=== PATIENT | female | born 1995 | race Caucasian/White ===

== ENCOUNTER 2018-06-12 10:53 | Inpatient (IN) | payer OTHER ==
[2018-06-12] MEDS ORDERED: ONDANSETRON 4 MG/2 ML VIAL IVP STA (11:17)
[2018-06-12] MEDS ORDERED: SODIUM CHLORIDE 0.9% 1,000 ML IV STA (11:17)
[2018-06-12] MEDS ORDERED: MORPHINE SULFATE 4 MG/ML SYRINGE IV STA ×2 (11:17→13:04)
--- NOTE | 2018-06-12 11:21 | ED ---
General Adult HPI <John Moser - Last Filed: 06/12/18 13:07> - General Source: patient, RN notes reviewed, old records reviewed <Luigi Sheffield - Last Filed: 06/12/18 13:33> - General Chief complaint: Abdominal Pain Stated complaint: Abd Pain Time Seen by Provider: 06/12/18 11:04 - History of Present Illness Initial comments: Patient is a 22-year-old female presenting to the emergency room today by EMS with a transfer from [facility] for possible choledocholithiasis. Patient does admit to nausea vomiting over the last 3 days. Denies any signs of blood. Does admit to previous cholecystectomy approximately one year ago. Patient admits to pain in the right side of the abdomen. States pain and symptoms have improved after nausea and pain medicine. Patient did have CT performed mildly dilated duct. There was concern for choledocholithiasis as there is elevated liver enzymes and bilirubin. Patient denies any known history of elevated liver enzymes in the past. She denies any other complaints. Patient denies any recent fever, chills, shortness of breath, chest pain, back pain, numbness or tingling, headaches or visual changes, or any other complaints. (Luigi Sheffield) - Related Data Home Medications Medication Instructions Recorded Confirmed Albuterol Inhaler [Ventolin Hfa 2 puff INHALATION RT-Q6H PRN 06/12/18 06/12/18 Inhaler] Ibuprofen [Motrin] 800 mg PO TID PRN 06/12/18 06/12/18 Allergies Allergy/AdvReac Type Severity Reaction Status Date / Time No Known Allergies Allergy Verified 06/12/18 11:06 Review of Systems ROS Other: All systems not noted in ROS Statement are negative. <John Moser - Last Filed: 06/12/18 13:07> ROS Other: All systems not noted in ROS Statement are negative. <Luigi Sheffield - Last Filed: 06/12/18 13:33> ROS Statement: Those systems with pertinent positive or pertinent negative responses have been documented in the HPI. Past Medical History Past Medical History: No Reported History History of Any Multi-Drug Resistant Organisms: None Reported Past Surgical History: Cholecystectomy, Ear Surgery, Tonsillectomy Past Psychological History: No Psychological Hx Reported Smoking Status: Current every day smoker Past Alcohol Use History: None Reported Past Drug Use History: None Reported <Luigi Sheffield - Last Filed: 06/12/18 13:33> General Exam <John Moser - Last Filed: 06/12/18 13:07> <Luigi Sheffield - Last Filed: 06/12/18 13:33> - General Exam Comments Initial Comments: General: The patient is awake and alert, in no distress, and does not appear acutely ill. Eye:agmus. There is normal conjunctiva bilaterally. No signs of icterus. Ears, nose, mouth and throat: There are moist mucous membranes and no oral lesions. Neck: The neck is supple, there is no tenderness or JVD. Cardiovascular: There is a regular rate and rhythm. No murmur, rub or gallop is appreciated. Respiratory: Lungs are clear to auscultation, respirations are non-labored, breath sounds are equal. No wheezes, stridor, rales, or rhonchi. Gastrointestinal: Abdomen soft on palpation. Mild tenderness epigastric right upper quadrants. No rebound or guarding. Musculoskeletal: Normal ROM, no tenderness. Neurological: A&O x 3. CN II-XII intact, There are no obvious motor or sensory deficits. Coordination appears grossly intact. Speech is normal. Skin: Skin is warm and dry and no rashes or lesions are noted. Psychiatric: Cooperative, appropriate mood & affect, normal judgment. (Luigi Sheffield) Course <John Moser - Last Filed: 06/12/18 13:07> <YohannesLuigi - Last Filed: 06/12/18 13:33> Vital Signs 06/12/18 06/12/18 06/12/18 10:57 11:42 13:22 Temperature 98.0 F Pulse Rate 76 71 72 Respiratory 18 16 Rate Blood Pressure 131/82 133/87 132/82 O2 Sat by Pulse 100 98 98 Oximetry - Reevaluation(s) Reevaluation #1: 06/12/18 13:07 PA supervision: I proceeded [id number] evaluation the patient she was transferred from [facility] with complaints of 3 days of abdominal pain. She is 3 years out from a cholecystectomy. She is found have elevated liver enzymes and a bilirubin of 3.0. He persists in having pain. She will be admitted with GI consultation. I do agree with the assessment and plan. (John Moser) Medical Decision Making - Lab Data Result diagrams: 06/12/18 11:40 06/12/18 11:40 <John Moser - Last Filed: 06/12/18 13:07> - Lab Data Result diagrams: 06/12/18 11:40 06/12/18 11:40 <Luigi Sheffield - Last Filed: 06/12/18 13:33> - Lab Data Lab Results 06/12/18 06/12/18 06/12/18 Range/Units 11:40 11:40 11:40 WBC 8.1 (4.0-11.0) k/uL RBC 4.86 (3.80-5.40) m/uL Hgb 14.5 (11.4-16.0) gm/dL Hct 43.3 (34.0-46.0) % MCV 88.9 (80.0-100.0) fL MCH 29.8 (25.0-35.0) pg MCHC 33.5 (31.0-37.0) g/dL RDW 13.7 (11.5-15.5) % Plt Count 285 (150-450) k/uL Neutrophils % 67 % Lymphocytes % 21 % Monocytes % 8 % Eosinophils % 2 % Basophils % 1 % Neutrophils # 5.4 (1.3-7.7) k/uL Lymphocytes # 1.7 (1.0-4.8) k/uL Monocytes # 0.7 (0-1.0) k/uL Eosinophils # 0.2 (0-0.7) k/uL Basophils # 0.1 (0-0.2) k/uL Sodium 140 (137-145) mmol/L Potassium 3.8 (3.5-5.1) mmol/L Chloride 108 H (98-107) mmol/L Carbon Dioxide 23 (22-30) mmol/L Anion Gap 9 mmol/L BUN 12 (7-17) mg/dL Creatinine 0.85 (0.52-1.04) mg/dL Est GFR (CKD-EPI)AfAm >90 (>60 ml/min/1.73 sqM) Est GFR (CKD-EPI)NonAf >90 (>60 ml/min/1.73 sqM) Glucose 98 (74-99) mg/dL Calcium 9.0 (8.4-10.2) mg/dL Total Bilirubin 3.0 H (0.2-1.3) mg/dL AST 371 H (14-36) U/L ALT 672 H (9-52) U/L Alkaline Phosphatase 147 H (38-126) U/L Total Protein 7.1 (6.3-8.2) g/dL Albumin 4.1 (3.5-5.0) g/dL Amylase <30 L (30-110) U/L Lipase 37 (23-300) U/L HCG, Quant <2.4 mIU/mL Urine Color [place] Urine Appearance Clear (Clear) Urine pH 6.5 (5.0-8.0) Ur Specific [place] >1.050 H (1.001-1.035) Urine Protein 1+ H (Negative) Urine Glucose (UA) Negative (Negative) Urine Ketones 1+ H (Negative) Urine Blood Small H (Negative) Urine Nitrite Negative (Negative) Urine Bilirubin 2+ H (Negative) Urine Urobilinogen 2.0 (<2.0) mg/dL Ur Leukocyte Esterase Negative (Negative) Urine RBC 4 (0-5) /hpf Urine WBC 1 (0-5) /hpf Ur Squamous Epith Cells 11 H (0-4) /hpf Urine Bacteria Rare H (None) /hpf Urine Mucus Occasional H (None) /hpf Hepatitis A IgM Ab 06/12/18 Range/Units 11:51 WBC (4.0-11.0) k/uL RBC (3.80-5.40) m/uL Hgb (11.4-16.0) gm/dL Hct (34.0-46.0) % MCV (80.0-100.0) fL MCH (25.0-35.0) pg MCHC (31.0-37.0) g/dL RDW (11.5-15.5) % Plt Count (150-450) k/uL Neutrophils % % Lymphocytes % % Monocytes % % Eosinophils % % Basophils % % Neutrophils # (1.3-7.7) k/uL Lymphocytes # (1.0-4.8) k/uL Monocytes # (0-1.0) k/uL Eosinophils # (0-0.7) k/uL Basophils # (0-0.2) k/uL Sodium (137-145) mmol/L Potassium (3.5-5.1) mmol/L Chloride (98-107) mmol/L Carbon Dioxide (22-30) mmol/L Anion Gap mmol/L BUN (7-17) mg/dL Creatinine (0.52-1.04) mg/dL Est GFR (CKD-EPI)AfAm (>60 ml/min/1.73 sqM) Est GFR (CKD-EPI)NonAf (>60 ml/min/1.73 sqM) Glucose (74-99) mg/dL Calcium (8.4-10.2) mg/dL Total Bilirubin (0.2-1.3) mg/dL AST (14-36) U/L ALT (9-52) U/L Alkaline Phosphatase (38-126) U/L Total Protein (6.3-8.2) g/dL Albumin (3.5-5.0) g/dL Amylase (30-110) U/L Lipase (23-300) U/L HCG, Quant mIU/mL Urine Color Urine Appearance (Clear) Urine pH (5.0-8.0) Ur Specific [place] (1.001-1.035) Urine Protein (Negative) Urine Glucose (UA) (Negative) Urine Ketones (Negative) Urine Blood (Negative) Urine Nitrite (Negative) Urine Bilirubin (Negative) Urine Urobilinogen (<2.0) mg/dL Ur Leukocyte Esterase (Negative) Urine RBC (0-5) /hpf Urine WBC (0-5) /hpf Ur Squamous Epith Cells (0-4) /hpf Urine Bacteria (None) /hpf Urine Mucus (None) /hpf Hepatitis A IgM Ab NEGATIVE Disposition <John Moser - Last Filed: 06/12/18 13:07> Is patient prescribed a controlled substance at d/c from ED?: No Time of Disposition: 13:03 <Luigi Sheffield - Last Filed: 06/12/18 13:33> Clinical Impression: Elevated liver enzymes, Elevated bilirubin, Right upper quadrant abdominal pain Narrative: Rule out choledocholithiasis (Luigi Sheffield) Disposition: ADMITTED IP TO THIS [facility] Condition: Good Referrals: Chandra Leo MD [Primary Care Provider] - 1-2 days
[2018-06-12 11:55] LABS: Basophils # (A) 0.1 k/uL (0-0.2); Basophils % (A) 1 %; Eosinophils # (A) 0.2 k/uL (0-0.7); Eosinophils % (A) 2 %; HCT 43.3 % (34.0-46.0); HGB 14.5 gm/dL (11.4-16.0); Lymphocytes # (A) 1.7 k/uL (1.0-4.8); Lymphocytes % (A) 21 %; MCH 29.8 pg (25.0-35.0); MCHC 33.5 g/dL (31.0-37.0); MCV 88.9 fL (80.0-100.0); Monocytes # (A) 0.7 k/uL (0-1.0); Monocytes % (A) 8 %; Neutrophils # (A) 5.4 k/uL (1.3-7.7); Neutrophils % (A) 67 %; Platelet Count 285 k/uL (150-450); RBC 4.86 m/uL (3.80-5.40); RDW 13.7 % (11.5-15.5); WBC 8.1 k/uL (4.0-11.0)
[2018-06-12 11:59] LABS: Appearance,Urine Clear (Clear); Bacteria,Urine Rare /hpf; Bilirubin,Urine 2+ (Negative); Blood,Urine Small (Negative); Color,Urine Orange; Glucose,Urine (UA) Negative (Negative); Ketones,Urine 1+ (Negative); Leukocyte Esterase,Urine Negative (Negative); Mucus,Urine Occasional /hpf; Nitrite,Urine Negative (Negative); PH, Urine 6.5 (5.0-8.0); Protein,Urine 1+ (Negative); RBC,Urine 4 /hpf (0-5); Specific Gravity,Urine >1.050 (1.001-1.035); Squamous Epithelial Cell,Urine 11 /hpf (0-4); WBC,Urine 1 /hpf (0-5)
[2018-06-12 12:07] LABS: ALT 672 U/L (9-52); AST 371 U/L (14-36); Albumin 4.1 g/dL (3.5-5.0); Alkaline Phosphatase 147 U/L (38-126); Amylase <30 U/L (30-110); Anion Gap 9 mmol/L; Blood Urea Nitrogen 12 mg/dL (7-17); Carbon Dioxide 23 mmol/L (22-30); Chloride 108 mmol/L (98-107); Glucose 98 mg/dL (74-99); Lipase 37 U/L (23-300); Potassium 3.8 mmol/L (3.5-5.1); Sodium 140 mmol/L (137-145); Total Protein 7.1 g/dL (6.3-8.2)
[2018-06-12 12:23] LABS: HCG,Quantitative Serum <2.4 mIU/mL
[2018-06-12 12:50] LABS: Hepatitis A AB IgM Index 0.01; Hepatitis A Antibody IgM NEGATIVE
[2018-06-12] MEDS ORDERED: NALOXONE 0.4 MG/ML 1 ML VIAL IV PRN (13:34)
[2018-06-12 14:43] VITALS: BMI 51.8
[2018-06-12] MEDS: SODIUM CHLORIDE 0.9% 1,000 ML IV ONE (15:29)
[2018-06-12] MEDS: ONDANSETRON 4 MG/2 ML VIAL IVP PRN (21:21)
[2018-06-12] MEDS: MORPHINE SULFATE 4 MG/ML SYRINGE IV PRN (21:21)
[2018-06-12] MEDS: ENOXAPARIN 40 MG/0.4 ML SYRINGE SQ SCH (21:48)
[2018-06-12] MEDS: NICOTINE 21MG/24HR PATCH TRANSDERM SCH (21:48)
--- NOTE | 2018-06-12 22:56 | HP ---
HISTORY AND PHYSICAL DATE OF SERVICE: 06/12/2018. PRESENTING COMPLAINT: Right upper quadrant pain. HISTORY OF PRESENTING COMPLAINT: This is a 22-year-old patient of Dr. Leo. Chronic stable medical conditions include asthma, scoliosis, obesity. The patient had gallbladder removed by Dr. Velasquez about 2 years ago in [place]. The patient for about 8 weeks has been having some right upper quadrant pain. Over the last 3 days, right upper quadrant pain has gotten worse, having nausea and vomiting. No fever. The patient presented to [facility]. The patient was found to have elevated liver functions, ALT of 723, AST of 490, bilirubin of 3.2. The patient was sent down here with questions about dilated ducts, intention of ERCP. No fever. No chills. The patient's boyfriend is present with her. REVIEW OF SYSTEMS: CONSTITUTIONAL: Tired. HEENT: None. RESPIRATORY: Occasional wheezing. CARDIOVASCULAR: None. GASTROINTESTINAL: As above. : None. MUSCULOSKELETAL: Chronic lower back pain. DERMATOLOGICAL, HEMATOLOGIC, LYMPHATIC: None. PSYCHIATRY: None. NEUROLOGIC: None. PAST MEDICAL HISTORY: Low back pain from scoliosis, asthma. PAST SURGICAL HISTORY: Cholecystectomy, ear surgery, tonsillectomy. SOCIAL HISTORY: Smokes a pack a day. No alcohol. Lives with the father. Does not work. FAMILY HISTORY: DJD. HOME MEDICATIONS: 1. Motrin 800 mg t.i.d. p.r.n. 2. Ventolin HFA 2 puffs every 6 hours p.r.n. ALLERGIES: MUSHROOMS. EXAMINATION: Temperature 98, pulse 66, respirations 20, blood pressure 130/69, pulse ox 95% on room air. GENERAL APPEARANCE: Well built, BMI 51.8. Lying in bed, comfortable. EYES: Pupils equal. Conjunctivae normal. HEENT: External nose and ears normal. Oral cavity normal. NECK: Short, thick, JVD unable to assess. Mass not palpable. Respiratory effort normal. LUNGS: Mild wheezing. CARDIOVASCULAR: First and second sounds normal. No edema. Right upper quadrant tenderness. No guarding or rigidity. Liver and spleen not palpable. LYMPHATICS: No lymph node palpable in the neck or axillae. PSYCHIATRY: Alert and oriented x3. Mood and affect normal. NEUROLOGIC: Pupils equal. Cranial nerves grossly intact. Power and sensation grossly intact. INVESTIGATIONS: White count 8.1, hemoglobin 14.5, potassium 3.8. BUN and creatinine normal. Total bilirubin 3, AST 371, ALT 672. This was 723 and 490 at the other hospital. Total bilirubin is 3. Amylase and lipase negative. Hepatitis A, IgM antibodies negative. ASSESSMENT: 1. The patient with right upper quadrant pain for last few days, worsening in the last 3 days, with elevated liver enzymes, hyperbilirubinemia in a patient who has had cholecystectomy. There was a concern about a biliary duct stone and the patient may need ERCP for the same. There is no septic picture at the present time with no fever and no white count. Hold off any antibiotics. 2. Mild intermittent asthma. 3. Chronic nicotine dependence, patient is a cigarette smoker. 4. Morbid obesity, BMI 51.8. PLAN: Repeat labs in the morning in the morning. GI has been consulted. Given a nicotine patch. Lovenox for DVT prophylaxis. IV fluids. The patient will probably need an ERCP. Care was discussed with the patient and boyfriend. Questions were answered. MMCHAPINCITOL / VICTOR HUGON: [id number] /
[2018-06-13] MEDS: SODIUM CHLORIDE 0.9% 1,000 ML IV ONE (00:33)
[2018-06-13] MEDS: MORPHINE SULFATE 4 MG/ML SYRINGE IV PRN ×2 (05:40→21:24)
[2018-06-13] MEDS: ONDANSETRON 4 MG/2 ML VIAL IVP PRN ×2 (05:40→23:26)
[2018-06-13] MEDS: ENOXAPARIN 40 MG/0.4 ML SYRINGE SQ SCH (08:33)
[2018-06-13 09:43] LABS: Hepatitis B Core IgM Non-Reactive (Non-Reactive)
[2018-06-13 10:21] LABS: Basophils # (A) 0.1 k/uL (0-0.2); Basophils % (A) 1 %; Eosinophils # (A) 0.2 k/uL (0-0.7); Eosinophils % (A) 3 %; HCT 43.3 % (34.0-46.0); Lymphocytes # (A) 2.1 k/uL (1.0-4.8); Lymphocytes % (A) 32 %; MCH 28.9 pg (25.0-35.0); MCHC 32.3 g/dL (31.0-37.0); MCV 89.5 fL (80.0-100.0); Mean Platelet Volume 6.9; Monocytes # (A) 0.6 k/uL (0-1.0); Monocytes % (A) 9 %; Neutrophils # (A) 3.5 k/uL (1.3-7.7); Neutrophils % (A) 54 %; Platelet Count 251 k/uL (150-450); RBC 4.84 m/uL (3.80-5.40); RDW 13.7 % (11.5-15.5); WBC 6.6 k/uL (4.0-11.0)
[2018-06-13 10:37] LABS: ALT 480 U/L (9-52); AST 174 U/L (14-36); Albumin 3.6 g/dL (3.5-5.0); Alkaline Phosphatase 149 U/L (38-126); Anion Gap 9 mmol/L; Blood Urea Nitrogen 8 mg/dL (7-17); Calcium 9.2 mg/dL (8.4-10.2); Carbon Dioxide 26 mmol/L (22-30); Chloride 105 mmol/L (98-107); Glucose 80 mg/dL (74-99); Potassium 4.2 mmol/L (3.5-5.1); Sodium 140 mmol/L (137-145); Total Bilirubin 3.9 mg/dL (0.2-1.3); Total Protein 6.6 g/dL (6.3-8.2)
[2018-06-13] MEDS: NICOTINE 21MG/24HR PATCH TRANSDERM SCH (21:25)
--- NOTE | 2018-06-13 21:25 | P.CONS ---
History of Present Illness - Reason for Consult Consult date: 06/13/18 Abdominal pain Requesting physician: Chris Mari - Chief Complaint Abdominal pain - History of Present Illness 22-year-old female with a medical history significant for asthma, scoliosis and morbid obesity who presents to the hospital with complaints of abdominal pain. The patient previously had a cholecystectomy approximately one and a half to 2 years ago. She reports that over the past 8 weeks she has been having intermittent right upper quadrant pain. This pain became constant and more intense in severity over the past 3 days causing the patient's to present to the hospital for further evaluation. The patient had associated nausea and vomiting. The patient had imaging at an outside hospital with a computed tomography scan with reported dilation of the biliary tree. On presentation to the hospital she was found to have an elevation in her liver enzymes with a total bilirubin 3.9, alkaline phosphatase 149, AST 174 and ALT 480. Currently she is seen sitting in bed reporting that her abdominal pain has resolved. She still reports some abdominal tenderness with palpation but states that the pain which caused her to come to the hospital has passed. She is asking for diet at this time. Review of Systems REVIEW OF SYSTEMS: CARDIO: Denies any chest pain or palpitations. PULMONARY: Denies any shortness of breath or wheezing. GENITOURINARY: No dysuria or hematuria. MUSCULOSKELETAL: No weakness reported. SKIN: Denies any new rashes or lesions, jaundice or pallor. PSYCHIATRIC: Denies any depression or anxiety. NEUROLOGY: Denies headache, denies any new focal deficits. EARS: No tinnitus, discharge or new hearing loss. NOSE: No discharge or congestion. EYES: No pain in eyes or change in vision. CONSTITUTIONAL: No recent weight loss. No fever, chills, night sweats. Past Medical History Past Medical History: No Reported History History of Any Multi-Drug Resistant Organisms: None Reported Past Surgical History: Cholecystectomy, Ear Surgery, Tonsillectomy Past Anesthesia/Blood Transfusion Reactions: No Reported Reaction Past Psychological History: No Psychological Hx Reported Smoking Status: Current every day smoker Past Alcohol Use History: None Reported Past Drug Use History: None Reported - Past Family History Mother Additional Family Medical History / Comment(s): DEGENERATIVE BONE DISEASE Medications and Allergies Home Medications Medication Instructions Recorded Confirmed Type Albuterol Inhaler [Ventolin Hfa 2 puff INHALATION RT-Q6H PRN 06/12/18 06/12/18 History Inhaler] Ibuprofen [Motrin] 800 mg PO TID PRN 06/12/18 06/12/18 History Allergies Allergy/AdvReac Type Severity Reaction Status Date / Time Mushroom Allergy Rash/Hives Verified 06/12/18 14:27 Physical Exam Vitals: Vital Signs Temp Pulse Resp BP Pulse Ox 06/13/18 16:38 98.5 F 79 16 112/64 99 06/13/18 11:45 98.1 F 77 18 111/74 95 06/13/18 08:10 97.7 F 88 20 114/80 94 L 06/13/18 01:30 98.9 F 70 18 128/78 96 Intake and Output 06/13/18 06/13/18 06/13/18 06:59 14:59 22:59 Other: # Voids 1 On physical examination, patient appears comfortable in no apparent distress. HEAD: Normocephalic, atraumatic. EYES: No scleral icterus. No conjunctival injection. MOUTH: No lesions, tongue midline. NECK: Trachea midline, no gross abnormalities. CHEST: Clear to auscultation with no wheezing or rhonchi appreciated. HEART: Regular rate and rhythm. ABDOMEN: Soft, obese. Bowel sounds are positive. No organomegaly. No guarding or rigidity. EXTREMITIES: No pedal edema. SKIN: No rashes, no jaundice. NEUROLOGIC: Alert and oriented x3. No focal deficits. Results CBC & Chem 7: 06/13/18 09:43 06/13/18 09:43 Labs: Abnormal Lab Results - Last 24 Hours (Table) 06/13/18 Range/Units 09:43 Total Bilirubin 3.9 H (0.2-1.3) mg/dL AST 174 H (14-36) U/L ALT 480 H (9-52) U/L Alkaline Phosphatase 149 H (38-126) U/L Assessment and Plan (1) Right upper quadrant abdominal pain Narrative/Plan: 3-year-old female with a prior history of cholecystectomy who presented to the hospital with intermittent episodes of right upper quadrant abdominal pain over the past 8 weeks which has intensified over the past 3 days prior to presentation and has since resolved. The patient reports that this pain was in the right upper quadrant and she was found to have an associated rise in her liver enzymes with both a cholestatic and hepatocellular pattern on presentation. Unknown etiology, this may represent choledocholithiasis, a passed gallstone, sphincter of OD dysfunction, functional dyspepsia or other etiology. Current Visit: Yes Status: Acute Code(s): R10.11 - RIGHT UPPER QUADRANT PAIN SNOMED Code(s): 932852145 (2) Elevated bilirubin Current Visit: Yes Status: Acute Code(s): R17 - UNSPECIFIED JAUNDICE SNOMED Code(s): 376524142 (3) Elevated liver enzymes Current Visit: Yes Status: Acute Code(s): R74.8 - ABNORMAL LEVELS OF OTHER SERUM ENZYMES SNOMED Code(s): 183973752 Plan: Supportive care Okay for full liquid diet and advance as tolerated Nothing by mouth after midnight Repeat liver enzymes in the morning We'll order an ultrasound of the abdomen for further evaluation, and MRCP is preferred test of choice, however at this time the patient's body habitus is limiting Continue to monitor clinically Further recommendations pending patient's clinical course and findings of laboratory and imaging evaluation Thank you for allowing us to participate in the care of this patient we will continue to follow
[2018-06-14] MEDS ORDERED: HYDROmorphone 0.5 MG/0.5 ML SYRINGE IVP PRN (00:37)
[2018-06-14] MEDS ORDERED: METOCLOPRAMIDE 5 MG/ML 2 ML VIAL IVP PRN (00:39)
[2018-06-14] MEDS: HYDROmorphone 1 MG/ML 1 ML SYRINGE IVP PRN ×2 (04:07→13:49)
[2018-06-14 06:32] LABS: Albumin 3.7 g/dL (3.5-5.0); Bilirubin, Conjugated 1.6 mg/dL (0.0-0.3); Bilirubin, Delta 1.6 mg/dL (0.0-0.2); Bilirubin,Unconjugated 0.6 mg/dL (0.0-1.1); Total Bilirubin 3.8 mg/dL (0.2-1.3); Total Protein 6.5 g/dL (6.3-8.2)
[2018-06-14] MEDS: ENOXAPARIN 40 MG/0.4 ML SYRINGE SQ SCH (07:48)
[2018-06-14] MEDS: NICOTINE 21MG/24HR PATCH TRANSDERM SCH (07:48)
--- NOTE | 2018-06-14 08:03 | US ---
EXAMINATION TYPE: US abdomen limited DATE OF EXAM: 06/14/2018 COMPARISON: NONE CLINICAL HISTORY: Abdomina pain, history cholecystectomy. Patient stated has right lateral abdominal pain that radiates lateral and upward, diarrhea, and nausea; gallbladder removed 2 years ago EXAM MEASUREMENTS: Liver Length: 20.5 cm Gallbladder Wall: surgically absent CBD: 0.5 cm Right Kidney: 10.8 x 6.2 x 4.7 cm Us exam is technically limited due to large body habitus. Pancreas: hyperechoic Liver: enlarged. There is increased echogenicity of the hepatic parenchyma with diminished visualiza tion of the portal triads most commonly relating to hepatic steatosis and limiting evaluation for und erlying hepatic masses. Gallbladder: surgically removed Evidence for sonographic Fernando's sign: no CBD: wnl Right Kidney: No hydronephrosis or masses seen IMPRESSION: 1. Findings most compatible with hepatic steatosis overall appearing moderate in degree. Correlate wi th liver function tests. 2. Surgical absence of the gallbladder. Common bile duct is within normal limits.
[2018-06-14] MEDS ORDERED: AMPICILLIN-SULBACTAM 3 GM in SODIUM CHLORIDE 0.9% 100 ML IVPB ONE (14:00)
[2018-06-14] MEDS ORDERED: INDOMETHACIN 50MG SUPPOSITORY RECTAL ONE (14:00)
[2018-06-14] MEDS ORDERED: ROCURONIUM BROMIDE 10 MG/ML 10 ML VIAL IV ONE (16:17)
[2018-06-14] MEDS ORDERED: PROPOFOL 10 MG/ML 20 ML VIAL IV ONE (16:17)
[2018-06-14] MEDS ORDERED: fentaNYL (PF) 50 MCG/ML 2 ML AMP ONE (16:17)
[2018-06-14] MEDS ORDERED: IOPAMIDOL-300 50ML BTL INJ ONE (17:20)
[2018-06-14] MEDS ORDERED: IV FLUID CONTINUATION 1,000 ML IV ONE (17:21)
--- NOTE | 2018-06-14 17:27 | P.PCN ---
Date of Procedure: 06/14/18 Description of Procedure: Brief history: 22-year-old female with a medical history significant for asthma, scoliosis and morbid obesity who presents to the hospital with complaints of abdominal pain. The patient previously had a cholecystectomy approximately one and a half to 2 years ago. She reports that over the past 8 weeks she has been having intermittent right upper quadrant pain. This pain became constant and more intense in severity over the past 3 days causing the patient's to present to the hospital for further evaluation. The patient had associated nausea and vomiting. The patient had imaging at an outside hospital with a computed tomography scan with reported dilation of the biliary tree. On presentation to the hospital she was found to have an elevation in her liver enzymes with a total bilirubin 3.9, alkaline phosphatase 149, AST 174 and ALT 480. Upon initial evaluation the patient reported that she had resolution of her abdominal pain and was asking for a diet. However overnight the patient reported a further episode of right upper quadrant abdominal pain and repeat lab exam in the morning was significant for a persistently elevated total bilirubin of 3.8. At this time decision was made to perform an ERCP for further evaluation. Procedure performed: ERCP with cholangiogram, sphincterotomy and balloon sweep Preoperative diagnoses: Elevated total bilirubin, elevated liver enzymes, right upper quadrant abdominal pain IV sedation per anesthesia Estimated blood loss: Minimal. Procedure: After informed consent was obtained from the patient and after the risks benefits and complications including bleeding perforation and pancreatitis explained in detail the patient was brought into the endoscopy unit. The patient was placed in prone position and IV conscious sedation was administered by anesthesia under continuous monitoring. The Olympus side-viewing duodenoscope was then inserted into the mouth and esophagus intubated without any difficulty. The scope was gradually advanced into the stomach and duodenum. The major papilla was identified without any difficulty. Intubation of the ampulla was performed with a sphincterotome successfully followed by wire cannulation of the common bile duct. Cholangiogram was performed which showed a dilated common bile duct. An 11 mm sphincterotomy was then performed. Cannulation with a 11.5 mm balloon with multiple sweeps of the bile duct was then significant for bile duct sludge. Good bile flow was noted at the conclusion of the procedure. The pancreatic duct was not cannulated or injected. The patient tolerated the procedure well. Impression: 1. Dilated common bile duct noted on cholangiogram 2. Sphincterotomy 3. Balloon sweep of the common bile duct with biliary sludge noted Recommendations: The findings of this examination were discussed with the patient. Attempt was made to discuss the case with the patient's boyfriend and sister who are accompanying her for the procedure however they were not in the surgical waiting area. Okay for full liquid diet advance to low-fat diet as tolerated. Repeat liver enzymes in the morning. Monitor for signs and symptoms of pancreatitis. Unasyn given preprocedure. Indocin given to the patient.
--- NOTE | 2018-06-15 06:45 | FL ---
EXAMINATION TYPE: FL ERCP DATE OF EXAM: 06/14/2018 CLINICAL HISTORY: Pain. TECHNIQUE: Fluoroscopy. COMPARISON: Outside CT from 2 days ago.. FINDINGS: Fluoroscopic guidance was provided during ERCP procedure performed by Dr. Urias. A tota l of 4 minutes 18 seconds of fluoroscopic time was utilized during the procedure and 7 spot images wa s acquired. Images saved show successful biliary access with dilated extrahepatic biliary duct and pr ominent cystic duct remnant. Please refer to procedure note for further details as I was not present nor performed procedure. IMPRESSION: As Above.
--- NOTE | 2018-06-15 06:54 | PN ---
PROGRESS NOTE DATE OF SERVICE: 06/14/2018 PRESENTING COMPLAINT: Abdominal pain. INTERVAL HISTORY: Patient admitted with right upper quadrant pain. History of prior cholecystectomy. Saw this patient this morning before the ERCP. The previous evening patient had some more nausea and right upper quadrant pain. The patient is pending to go down to ERCP. REVIEW OF SYSTEMS: Done for constitutional, cardiovascular, GI, pulmonary; relevant findings as above. CURRENT MEDICATIONS: Reviewed. PHYSICAL EXAMINATION: Temperature 98.1 pulse 65, respirations 16, blood pressure 110/78, pulse ox 95% on room air. GENERAL APPEARANCE: Laying in bed, comfortable. EYES: Pupils equal. Conjunctivae normal. NECK: JVD not raised. Mass not palpable. Respiratory effort normal. LUNGS: Fair air entry. CARDIOVASCULAR: First and second sounds. No edema. ABDOMEN: Right upper quadrant tenderness. No guarding or rigidity. PSYCHIATRY: Alert and oriented x3. Mood and affect normal. INVESTIGATIONS: Bilirubin3.8, AST 115, ALT 378. Hepatitis screen is negative. ASSESSMENT: 1. Right upper quadrant pain with a dilated common bile duct. The patient may have sludge or stone, pending ERCP. 2. Mild intermittent asthma. 3. Chronic nicotine dependence, patient is a cigarette smoker. 4. Morbid obesity BMI 51.8. PLAN: Care was discussed with the patient. She was pending ERCP when I saw her this morning. Later in the evening, I looked at the report. The patient did have a sphincterotomy and possibly some sludge was removed. Will follow up then tomorrow. MMODL / IJN: [id number] /
[2018-06-15] MEDS: NICOTINE 21MG/24HR PATCH TRANSDERM SCH (08:55)
[2018-06-15] MEDS: ENOXAPARIN 40 MG/0.4 ML SYRINGE SQ SCH (08:55)
[2018-06-15 10:09] LABS: ALT 312 U/L (9-52); AST 119 U/L (14-36); Albumin 3.8 g/dL (3.5-5.0); Alkaline Phosphatase 131 U/L (38-126); Anion Gap 11 mmol/L; Bilirubin, Conjugated 2.1 mg/dL (0.0-0.3); Bilirubin, Delta 1.6 mg/dL (0.0-0.2); Bilirubin,Unconjugated 1.1 mg/dL (0.0-1.1); Blood Urea Nitrogen 14 mg/dL (7-17); Calcium 9.4 mg/dL (8.4-10.2); Carbon Dioxide 24 mmol/L (22-30); Chloride 105 mmol/L (98-107); Glucose 139 mg/dL (74-99); Potassium 3.7 mmol/L (3.5-5.1); Sodium 140 mmol/L (137-145); Total Bilirubin 4.8 mg/dL (0.2-1.3); Total Protein 6.8 g/dL (6.3-8.2)
--- NOTE | 2018-06-15 11:19 | P.PN ---
Subjective Progress Note Date: 06/15/18 Principal diagnosis: Elevated liver enzymes Status post ERCP sphincterotomy. LFTs today; bilirubin elevated; TB 4.8. AST 119. ALT 312. AP 131. Denies abdominal pain. Tolerating diet. Afebrile. Objective - Vital Signs Vital signs: Vital Signs Temp 97.8 F 06/15/18 06:15 Pulse 70 06/15/18 06:15 Resp 20 06/15/18 06:15 BP 129/77 06/15/18 06:15 Pulse Ox 97 06/15/18 06:15 Intake & Output 06/14/18 06/15/18 06/15/18 18:59 06:59 18:59 Intake Total 700 400 Balance 700 400 Intake: IV 700 Oral 400 Other: Voiding Method Toilet # Voids 3 1 1 # Bowel Movements 1 - Exam General appearance: The patient is alert, oriented, in no acute distress. HET: Head is normocephalic and atraumatic. Pupils are equal and reactive. Oropharynx is clear without lesions. Neck: Supple without lymphadenopathy. Trachea midline. Heart: S1 S2. Regular rate and rhythm. Lungs: No crackles or wheezes are heard. Abdomen: Soft, very mild tenderness to midepigastrium, nondistended with bowel sounds. No peritoneal signs. No palpable organomegaly or masses. Extremities: Normal skin color and turgor. No cyanosis, rash, ulceration, clubbing, or edema. Radial and pedal pulses are 2/4 bilaterally. Neurological: No focal deficits. Strength and sensation are grossly intact. - Labs CBC & Chem 7: 06/13/18 09:43 06/15/18 09:26 Labs: Abnormal Lab Results - Last 24 Hours (Table) 06/15/18 Range/Units 09:26 Glucose 139 H (74-99) mg/dL Total Bilirubin 4.8 H (0.2-1.3) mg/dL Conjugated Bilirubin 2.1 H (0.0-0.3) mg/dL Delta Bilirubin 1.6 H (0.0-0.2) mg/dL AST 119 H (14-36) U/L ALT 312 H (9-52) U/L Alkaline Phosphatase 131 H (38-126) U/L Assessment and Plan (1) Elevated liver enzymes Narrative/Plan: Status post ERCP sphincterotomy total bilirubin elevated from yesterday underlying viral possible chronic liver disease cannot be excluded. Abdominal pain improved. Current Visit: Yes Status: Acute Code(s): R74.8 - ABNORMAL LEVELS OF OTHER SERUM ENZYMES SNOMED Code(s): 066605787 (2) Right upper quadrant abdominal pain Current Visit: Yes Status: Acute Code(s): R10.11 - RIGHT UPPER QUADRANT PAIN SNOMED Code(s): 495299590 Plan: 1. Continue supportive measures. Serologic chronic liver disease requested including viral studies. Light diet as tolerated. Continue to monitor liver function tests. Assessment and plan a care discussed with Dr. Urias
[2018-06-15 14:50] LABS: Prothrombin Time 10.8 sec (9.0-12.0)
[2018-06-15 15:06] VITALS: BP 125/84; PULSE 76; RESP 16; TEMP 98.3
[2018-06-15 19:42] LABS: Iron Saturation 22.92 (12.00-45.00)
[2018-06-15 20:37] LABS: EBV-VCA (IgG) >8.0 AI
[2018-06-16 06:29] LABS: Herpes simplex I and/or II IgM 0.49 INDEX (<=0.90)
--- NOTE | 2018-06-16 09:16 | DS ---
DISCHARGE SUMMARY DATE OF ADMISSION: 06/12/2018. DATE OF DISCHARGE: 06/15/2018 FINAL DIAGNOSES: 1. Acute right upper quadrant pain from possibly obstructed common bile duct from sludge. 2. Mild intermittent asthma. 3. Chronic nicotine dependence, patient is a cigarette smoker. 4. Morbid obesity, body mass index of 51.8. PROCEDURE: 1. ERCP. CONSULTATION: Dr. Urias from GI. HOSPITAL COURSE: This is a pleasant 22-year-old patient who has had a prior cholecystectomy about 2 years ago in [place] by , presented with right upper quadrant pain, nausea, vomiting, going on for some time with a bit of an obstructive picture. Patient did undergo ERCP. Some sludge was removed and sphincterotomy was carried out. Today, patient doing much better, tolerating a diet, feels really good, no other symptoms are present. PHYSICAL EXAMINATION: Afebrile, pulse 76, respirations 16, blood pressure 125/84, pulse ox 95% on room air. ABDOMEN: Soft, nontender. INVESTIGATION: White count is normal. AST has come down to 119, ALT was down to 312 and conjugated total bilirubin 4.8. Patient also had workup for Estefania Bar virus, did show positive for IgM and IgG. Patient is being discharged. DISCHARGE MEDICATIONS: 1. Ventolin HFA 2 puffs q.6 p.r.n. 2. Nicotine 20 mg patch. FOLLOWUP: Follow up with Dr. Leo on 06/23/2018. Follow up with Dr. Demarcus Urias in 1 week. Patient to have a liver function tests repeated in 1 week. MMODL / IJN: [id number] /
[2018-06-16 11:27] LABS: Ceruloplasmin 26.4 mg/dL (20.0-60.0)
[2018-06-16 11:43] LABS: Albumin 3.29 g/dL (3.80-4.90); Gamma Globulin 0.85 g/dL (0.70-1.50)
== END 2018-06-15 16:46 | disposition home or self-care (01) | DRG 445 ==
LOC: EC 10:53 → 6PED 13:06 → OBSVTOIN 06-13 12:36 → 4MS4W 06-14 18:28
PROVIDERS: ADMIT Hospitalist; ATTEND Hospitalist
PROC: 0F798ZZ Dilation of Common Bile Duct, Via Natural or Artificial Opening Endoscopic (ICD-10-PCS; principal; 2018-06-14 09:15)
DX: K83.1 Obstruction of bile duct (principal); R17 Unspecified jaundice; Z68.43 Body mass index [BMI] 50.0-59.9, adult; E66.01 Morbid (severe) obesity due to excess calories; F17.210 Nicotine dependence, cigarettes, uncomplicated; J45.20 Mild intermittent asthma, uncomplicated; K83.8 Other specified diseases of biliary tract; M41.9 Scoliosis, unspecified; Z79.899 Other long term (current) drug therapy; Z90.49 Acquired absence of other specified parts of digestive tract
CPT/HCPCS: 36415; 43262; 43277; 74330; 76705; 80053; 80074; 80076; 81001; 82103; 82150; 82390; 82728; 83516; 83540; 83550; 83690; 84165; 84702; 85025; 85610; 86038; 86376; 86644; 86645; 86663; 86664; 86665; 86694; 96361; 96374; 96375; 96376; 99285

== ENCOUNTER 2018-06-24 04:18 | Emergency (ER) | payer OTHER ==
[2018-06-24 06:27] LABS: Basophils # (A) 0.1 k/uL (0-0.2); Basophils % (A) 1 %; Eosinophils # (A) 0.6 k/uL (0-0.7); Eosinophils % (A) 5 %; HCT 41.5 % (34.0-46.0); HGB 13.9 gm/dL (11.4-16.0); Lymphocytes # (A) 3.5 k/uL (1.0-4.8); Lymphocytes % (A) 31 %; MCH 29.8 pg (25.0-35.0); MCHC 33.5 g/dL (31.0-37.0); Mean Platelet Volume 7.3; Monocytes # (A) 0.6 k/uL (0-1.0); Monocytes % (A) 6 %; Neutrophils # (A) 6.4 k/uL (1.3-7.7); Neutrophils % (A) 57 %; Platelet Count 351 k/uL (150-450); RBC 4.67 m/uL (3.80-5.40); RDW 13.7 % (11.5-15.5); WBC 11.4 k/uL (4.0-11.0)
[2018-06-24 06:34] LABS: Amorphous Sediment,Urine Occasional /hpf; Appearance,Urine Cloudy (Clear); Bilirubin,Urine Negative (Negative); Blood,Urine Negative (Negative); Color,Urine Yellow; Glucose,Urine (UA) Negative (Negative); Ketones,Urine Negative (Negative); Leukocyte Esterase,Urine Negative (Negative); Mucus,Urine Rare /hpf; Nitrite,Urine Negative (Negative); PH, Urine 6.5 (5.0-8.0); Protein,Urine Trace (Negative); RBC,Urine 5 /hpf (0-5); Specific Gravity,Urine 1.026 (1.001-1.035); Squamous Epithelial Cell,Urine 13 /hpf (0-4); WBC,Urine 1 /hpf (0-5)
[2018-06-24 06:37] LABS: ALT 102 U/L (9-52); AST 48 U/L (14-36); Albumin 4.1 g/dL (3.5-5.0); Alkaline Phosphatase 85 U/L (38-126); Amylase 36 U/L (30-110); Anion Gap 9 mmol/L; Blood Urea Nitrogen 21 mg/dL (7-17); Calcium 9.6 mg/dL (8.4-10.2); Carbon Dioxide 24 mmol/L (22-30); Chloride 108 mmol/L (98-107); Glucose 126 mg/dL (74-99); Lipase 141 U/L (23-300); Potassium 4.4 mmol/L (3.5-5.1); Sodium 141 mmol/L (137-145); Total Bilirubin 0.7 mg/dL (0.2-1.3); Total Protein 7.1 g/dL (6.3-8.2)
[2018-06-24] MEDS ORDERED: ONDANSETRON 4 MG/2 ML VIAL IVP STA (07:11)
[2018-06-24] MEDS ORDERED: HYDROcodone/APAP 5-325MG 1 EACH TAB PO STA (07:11)
--- NOTE | 2018-06-24 07:48 | ED ---
General Adult HPI - General Chief complaint: Abdominal Pain Stated complaint: abd pain Source: patient Mode of arrival: ambulatory Limitations: no limitations - History of Present Illness Initial comments: Dictation was produced using [employer] dictation software. please excuse any grammatical, word or spelling errors. Chief Complaint: 22-year-old obese female status post cholecystectomy presents with right-sided flank pain status post ERCP. History of Present Illness: 22-year-old female. She had an ERCP performed approximately 10 days ago for biliary duct stones. Patient reports since after the surgery her symptoms have been ongoing. Patient describes the pain as sharp and localized to her right flank right back area. Patient reports that she had cholecystectomy performed several years ago. Chart review shows that patient had ERCP performed by Dr. frias 10 days ago. Denies any constitutional symptoms. Patient feels mildly nauseated however no vomiting. The ROS documented in this emergency department record has been reviewed and confirmed by me. Those systems with pertinent positive or negative responses have been documented in the HPI. All other systems are other negative and/or noncontributory. - Related Data Home Medications Medication Instructions Recorded Confirmed Albuterol Inhaler [Ventolin Hfa 2 puff INHALATION RT-Q6H PRN 06/12/18 06/24/18 Inhaler] Ibuprofen [Motrin] 800 mg PO TID PRN 06/24/18 06/24/18 Allergies Allergy/AdvReac Type Severity Reaction Status Date / Time Mushroom Allergy Rash/Hives Verified 06/24/18 07:31 Review of Systems ROS Statement: Those systems with pertinent positive or pertinent negative responses have been documented in the HPI. ROS Other: All systems not noted in ROS Statement are negative. Past Medical History Past Medical History: No Reported History History of Any Multi-Drug Resistant Organisms: None Reported Past Surgical History: Cholecystectomy, Ear Surgery, Tonsillectomy Additional Past Surgical History / Comment(s): liver surgery. Past Anesthesia/Blood Transfusion Reactions: No Reported Reaction Past Psychological History: No Psychological Hx Reported Smoking Status: Current every day smoker Past Alcohol Use History: None Reported Past Drug Use History: None Reported - Past Family History Mother Additional Family Medical History / Comment(s): DEGENERATIVE BONE DISEASE General Exam - General Exam Comments Initial Comments: PHYSICAL EXAM: General Impression: Alert and oriented x3, not in acute distress HEENT: Normocephalic atraumatic, extra-ocular movements intact, pupils equal and reactive to light bilaterally, mucous membranes moist. Cardiovascular: Heart regular rate and rhythm, S1&S2 audible, no murmurs, rubs or gallops Chest: Lungs clear to auscultation bilaterally, no rhonchi, no wheeze, no rales Abdomen: Bowel sounds present, abdomen soft, diffuse abdominal tenderness, non- distended, no organomegaly Musculoskeletal: Pulses present and equal in all extremities, no peripheral edema Motor: Power 5/5 bilaterally, no focal deficits noted Neurological: CN II-XII grossly intact, no focal motor or sensory deficits noted Skin: Intact with no visualized rashes Psych: Normal affect and mood Limitations: no limitations Course Vital Signs 06/24/18 06/24/18 06/24/18 04:34 06:06 07:51 Temperature 98 F 97.4 F L Pulse Rate 79 69 Respiratory 16 16 18 Rate Blood Pressure 140/83 132/78 133/74 O2 Sat by Pulse 98 98 Oximetry Medical Decision Making - Medical Decision Making ED course: 22-year-old female with past medical history of obesity presents with right-sided abdominal/flank pain. Patient had ERCP performed 2 days ago. Signs upon arrival are within acceptable limits. Patient appears comfortable at bedside. Palpation of the abdomen shows diffuse abdominal tenderness. Patient however appears to be in no acute distress. Laboratory evaluation shows leukocytosis of 11.4, metabolic panel is improved from last visit. Urinalysis is unremarkable.Review analgesics. Serial abdominal examinations were performed. There is no progressive changes. At this point I do not feel there is any indication for this abdominal imaging given that patient's abdominal symptoms have improved after by mouth analgesics. Patient does have good primary care follow-up. Patient told to follow-up with PCP. Told to return with any worsening pain symptoms, nausea, vomiting diarrhea or fevers. She understandable and agreeable to plan. Clinical presentation consistent with surgical abdomen including acute appendicitis or intra- abdominal infection. - Lab Data Result diagrams: 06/24/18 06:12 06/24/18 06:12 Lab Results 06/24/18 06/24/18 06/24/18 Range/Units 06:12 06:12 06:13 WBC 11.4 H (4.0-11.0) k/uL RBC 4.67 (3.80-5.40) m/uL Hgb 13.9 (11.4-16.0) gm/dL Hct 41.5 (34.0-46.0) % MCV 89.0 (80.0-100.0) fL MCH 29.8 (25.0-35.0) pg MCHC 33.5 (31.0-37.0) g/dL RDW 13.7 (11.5-15.5) % Plt Count 351 (150-450) k/uL Neutrophils % 57 % Lymphocytes % 31 % Monocytes % 6 % Eosinophils % 5 % Basophils % 1 % Neutrophils # 6.4 (1.3-7.7) k/uL Lymphocytes # 3.5 (1.0-4.8) k/uL Monocytes # 0.6 (0-1.0) k/uL Eosinophils # 0.6 (0-0.7) k/uL Basophils # 0.1 (0-0.2) k/uL Sodium 141 (137-145) mmol/L Potassium 4.4 (3.5-5.1) mmol/L Chloride 108 H (98-107) mmol/L Carbon Dioxide 24 (22-30) mmol/L Anion Gap 9 mmol/L BUN 21 H (7-17) mg/dL Creatinine 0.76 (0.52-1.04) mg/dL Est GFR (CKD-EPI)AfAm >90 (>60 ml/min/1.73 sqM) Est GFR (CKD-EPI)NonAf >90 (>60 ml/min/1.73 sqM) Glucose 126 H (74-99) mg/dL Calcium 9.6 (8.4-10.2) mg/dL Total Bilirubin 0.7 (0.2-1.3) mg/dL AST 48 H (14-36) U/L ALT 102 H (9-52) U/L Alkaline Phosphatase 85 (38-126) U/L Total Protein 7.1 (6.3-8.2) g/dL Albumin 4.1 (3.5-5.0) g/dL Amylase 36 (30-110) U/L Lipase 141 (23-300) U/L Urine Color Urine Appearance (Clear) Urine pH (5.0-8.0) Ur Specific [place] (1.001-1.035) Urine Protein (Negative) Urine Glucose (UA) (Negative) Urine Ketones (Negative) Urine Blood (Negative) Urine Nitrite (Negative) Urine Bilirubin (Negative) Urine Urobilinogen (<2.0) mg/dL Ur Leukocyte Esterase (Negative) Urine RBC (0-5) /hpf Urine WBC (0-5) /hpf Ur Squamous Epith Cells (0-4) /hpf Amorphous Sediment (None) /hpf Urine Mucus (None) /hpf Urine HCG, Qual Not Detected (Not Detectd) 06/24/18 Range/Units 06:13 WBC (4.0-11.0) k/uL RBC (3.80-5.40) m/uL Hgb (11.4-16.0) gm/dL Hct (34.0-46.0) % MCV (80.0-100.0) fL MCH (25.0-35.0) pg MCHC (31.0-37.0) g/dL RDW (11.5-15.5) % Plt Count (150-450) k/uL Neutrophils % % Lymphocytes % % Monocytes % % Eosinophils % % Basophils % % Neutrophils # (1.3-7.7) k/uL Lymphocytes # (1.0-4.8) k/uL Monocytes # (0-1.0) k/uL Eosinophils # (0-0.7) k/uL Basophils # (0-0.2) k/uL Sodium (137-145) mmol/L Potassium (3.5-5.1) mmol/L Chloride (98-107) mmol/L Carbon Dioxide (22-30) mmol/L Anion Gap mmol/L BUN (7-17) mg/dL Creatinine (0.52-1.04) mg/dL Est GFR (CKD-EPI)AfAm (>60 ml/min/1.73 sqM) Est GFR (CKD-EPI)NonAf (>60 ml/min/1.73 sqM) Glucose (74-99) mg/dL Calcium (8.4-10.2) mg/dL Total Bilirubin (0.2-1.3) mg/dL AST (14-36) U/L ALT (9-52) U/L Alkaline Phosphatase (38-126) U/L Total Protein (6.3-8.2) g/dL Albumin (3.5-5.0) g/dL Amylase (30-110) U/L Lipase (23-300) U/L Urine Color Yellow Urine Appearance Cloudy H (Clear) Urine pH 6.5 (5.0-8.0) Ur Specific [place] 1.026 (1.001-1.035) Urine Protein Trace H (Negative) Urine Glucose (UA) Negative (Negative) Urine Ketones Negative (Negative) Urine Blood Negative (Negative) Urine Nitrite Negative (Negative) Urine Bilirubin Negative (Negative) Urine Urobilinogen 2.0 (<2.0) mg/dL Ur Leukocyte Esterase Negative (Negative) Urine RBC 5 (0-5) /hpf Urine WBC 1 (0-5) /hpf Ur Squamous Epith Cells 13 H (0-4) /hpf Amorphous Sediment Occasional H (None) /hpf Urine Mucus Rare H (None) /hpf Urine HCG, Qual (Not Detectd) Disposition Clinical Impression: Abdominal pain Disposition: HOME SELF-CARE Instructions: Abdominal Pain (ED) Is patient prescribed a controlled substance at d/c from ED?: No Referrals: Chandra Leo MD [Primary Care Provider] - 1-2 days Time of Disposition: 08:40
[2018-06-24 07:51] VITALS: BP 133/74; PULSE 69; RESP 18; TEMP 97.4
== END 2018-06-24 09:14 | disposition home or self-care (01) ==
LOC: EC 04:18
DX: R10.9 Unspecified abdominal pain (principal); D72.829 Elevated white blood cell count, unspecified; R11.0 Nausea; E66.9 Obesity, unspecified; F17.200 Nicotine dependence, unspecified, uncomplicated; Z91.018 Allergy to other foods; Z90.49 Acquired absence of other specified parts of digestive tract; Z68.43 Body mass index [BMI] 50.0-59.9, adult
CPT/HCPCS: 36415; 80053; 82150; 83690; 85025; 81001; 81025; 99284; 96374; J2405

== ENCOUNTER 2018-08-05 01:31 | Emergency (ER) | payer OTHER ==
[2018-08-05 01:48] VITALS: BP 129/84; PULSE 98; RESP 18; TEMP 99.2
--- NOTE | 2018-08-05 02:00 | ED ---
ENT HPI - General Chief complaint: ENT Stated complaint: L Ear Ache Time Seen by Provider: 08/05/18 01:48 Source: patient, RN notes reviewed Mode of arrival: ambulatory Limitations: no limitations - History of Present Illness Initial comments: 23-year-old female presents emergency Department with chief complaint left ear pain. Patient states started yesterday. She states the pain worsened throughout the day so she attempted to do candle earwax removal. Patient states that it seemed to make symptoms worse after. She did have large amount of drainage. Patient states she has pain around her ear she has had prior tubes when she was an . She reports no fever or chills. She has pain with movement of her left ear. Patient denies any sinus congestion, headache or dizziness. - Related Data Home Medications Medication Instructions Recorded Confirmed Albuterol Inhaler [Ventolin Hfa 2 puff INHALATION RT-Q6H PRN 06/12/18 06/24/18 Inhaler] Ibuprofen [Motrin] 800 mg PO TID PRN 06/24/18 06/24/18 Previous Rx's Medication Instructions Recorded Amoxicillin 875 mg PO Q12HR #20 tablet 08/05/18 Allergies Allergy/AdvReac Type Severity Reaction Status Date / Time Mushroom Allergy Rash/Hives Verified 08/05/18 01:48 Review of Systems ROS Statement: Those systems with pertinent positive or pertinent negative responses have been documented in the HPI. ROS Other: All systems not noted in ROS Statement are negative. Past Medical History Past Medical History: No Reported History History of Any Multi-Drug Resistant Organisms: None Reported Past Surgical History: Cholecystectomy, Ear Surgery, Tonsillectomy Additional Past Surgical History / Comment(s): liver surgery. Past Anesthesia/Blood Transfusion Reactions: No Reported Reaction Past Psychological History: No Psychological Hx Reported Smoking Status: Current every day smoker Past Alcohol Use History: None Reported Past Drug Use History: None Reported - Past Family History Mother Additional Family Medical History / Comment(s): DEGENERATIVE BONE DISEASE General Exam Limitations: no limitations General appearance: alert, in no apparent distress Head exam: Present: atraumatic, normocephalic, normal inspection Eye exam: Present: normal appearance, PERRL, EOMI. Absent: scleral icterus, conjunctival injection, periorbital swelling ENT exam: Present: normal oropharynx. Absent: mucous membranes moist, TM's normal bilaterally (Mild left), normal external ear exam (Erythema and exudates and left EAC) Neck exam: Present: normal inspection, full ROM. Absent: tenderness, meningismus, lymphadenopathy Respiratory exam: Present: normal lung sounds bilaterally. Absent: respiratory distress, wheezes, rales, rhonchi, stridor Cardiovascular Exam: Present: regular rate, normal rhythm, normal heart sounds. Absent: systolic murmur, diastolic murmur, rubs, gallop, clicks Neurological exam: Present: alert, oriented X3, CN II-XII intact Skin exam: Present: warm, dry, intact, normal color. Absent: rash Course Vital Signs 08/05/18 01:44 Temperature 99.2 F Pulse Rate 98 Respiratory 18 Rate Blood Pressure 129/84 O2 Sat by Pulse 96 Oximetry Medical Decision Making - Medical Decision Making 23-year-old female presenting left ear pain. She does has an erythema left ear canal, mild erythema of the TM. Patient we given eardrops oral antibiotics. Return parameters discussed. Disposition Clinical Impression: Otitis media, Otitis externa Disposition: HOME SELF-CARE Condition: Stable Instructions (If sedation given, give patient instructions): Earache (ED) Additional Instructions: Please return to the Emergency Department if symptoms worsen or any other concerns. Continue use of eardrops 4 drops twice daily for 7 days Prescriptions: Amoxicillin 875 mg PO Q12HR #20 tablet Is patient prescribed a controlled substance at d/c from ED?: No Referrals: None,Stated [Primary Care Provider] - 1-2 days Time of Disposition: 01:59
[2018-08-05] MEDS: AMOXICILLIN 875 MG TAB PO STA (02:14)
[2018-08-05] MEDS: CIPROFLOXACIN-DEXAMETH 0.3-0.1% DROPS 7.5 ML BTL LEFT EAR STA (02:14)
== END 2018-08-05 02:18 | disposition home or self-care (01) ==
LOC: EC 01:31
DX: H66.92 Otitis media, unspecified, left ear (principal); H60.92 Unspecified otitis externa, left ear; F17.200 Nicotine dependence, unspecified, uncomplicated; Z91.018 Allergy to other foods
CPT/HCPCS: 99282

== ENCOUNTER 2019-04-24 14:50 | Emergency (ER) | payer OTHER ==
[2019-04-24 14:55] VITALS: RESP 18
[2019-04-24] MEDS ORDERED: KETOROLAC 30 MG/ML 1 ML VIAL IVP STA (15:15)
[2019-04-24] MEDS ORDERED: AMPICILLIN-SULBACTAM 3 GM in SODIUM CHLORIDE 0.9% 100 ML IVPB STA (15:15)
[2019-04-24] MEDS ORDERED: ACETAMINOPHEN TAB 500 MG TAB PO STA (15:15)
--- NOTE | 2019-04-24 15:34 | ED ---
General Adult HPI - General Chief complaint: Nausea/Vomiting/Diarrhea Stated complaint: Infection, Lightheaded Time Seen by Provider: 04/24/19 14:56 Source: patient, RN notes reviewed Mode of arrival: wheelchair Limitations: no limitations - History of Present Illness Initial comments: 23-year-old female presents to the emergency department for a chief complaint of bilateral ear pain and drainage. States this started approximately 2-3 days ago. Patient states she has had issues with her ears for a very long time. States that her ear pain is causing her pain with opening her mouth. States she is having fevers. States she is nauseous and cannot keep down any fluids. Patient denies any pain behind her ears. Denies headache. Denies any neck pain or stiffness.Patient has no other complaints at this time including shortness of breath, chest pain, abdominal pain, headache, or visual changes. - Related Data Home Medications Medication Instructions Recorded Confirmed Ibuprofen [Motrin Ib] 800 mg PO TID PRN 04/24/19 04/24/19 Allergies Allergy/AdvReac Type Severity Reaction Status Date / Time Mushroom Allergy Rash/Hives Verified 04/24/19 15:43 Review of Systems ROS Statement: Those systems with pertinent positive or pertinent negative responses have been documented in the HPI. ROS Other: All systems not noted in ROS Statement are negative. Past Medical History Past Medical History: No Reported History History of Any Multi-Drug Resistant Organisms: None Reported Past Surgical History: Cholecystectomy, Ear Surgery, Tonsillectomy Additional Past Surgical History / Comment(s): liver surgery. Past Anesthesia/Blood Transfusion Reactions: No Reported Reaction Past Psychological History: No Psychological Hx Reported Smoking Status: Current every day smoker Past Alcohol Use History: None Reported Past Drug Use History: None Reported - Past Family History Mother Additional Family Medical History / Comment(s): DEGENERATIVE BONE DISEASE General Exam Limitations: no limitations General appearance: alert, in no apparent distress Head exam: Present: atraumatic, normocephalic, normal inspection Eye exam: Present: normal appearance, PERRL, EOMI. Absent: scleral icterus, conjunctival injection, periorbital swelling ENT exam: Present: normal exam, mucous membranes moist. Absent: normal oropharynx (patient has limited range of motion of mandible to 2 cm ), TM's normal bilaterally (Unable to visualize tympanic membranes secondary to purulent external drainage), normal external ear exam (Patient has bilateral purulent drainage noted from external auditory canals.) Neck exam: Present: normal inspection. Absent: tenderness, meningismus, full ROM (full flexion and rotation, patient has mildly limited extension seconday to pain), lymphadenopathy Respiratory exam: Present: normal lung sounds bilaterally. Absent: respiratory distress, wheezes, rales, rhonchi, stridor Cardiovascular Exam: Present: regular rate, normal rhythm, normal heart sounds. Absent: systolic murmur, diastolic murmur, rubs, gallop, clicks GI/Abdominal exam: Present: soft, normal bowel sounds. Absent: distended, tenderness, guarding, rebound, rigid Neurological exam: Present: alert Psychiatric exam: Present: normal affect, normal mood Course Vital Signs 04/24/19 04/24/19 14:52 16:59 Temperature 101.1 F H 100.4 F H Pulse Rate 116 H 103 H Respiratory 18 18 Rate Blood Pressure 119/80 116/57 O2 Sat by Pulse 98 98 Oximetry Medical Decision Making - Medical Decision Making HPI and physical exam as documented. Physical exam is pertinent for purulent drainage from the bilateral external auditory canals. I did attempt to clean out the ears with a Q-tip second visualization the tympanic membranes over patient could not tolerate this. Patient is febrile with a temperature of 101.1 CBC shows a white count of 15.5 with a left shift. CMP unremarkable. Patient has a history of what I presume to be right mastoiditis given her description. She does have both left and right mastoid tenderness today. I did do a CT of the mastoids with contrast that shows a left mastoiditis. There is fluid within the left mastoid air cells. Also clinically correlated for external auditory canal otitis. Dr. Pineda discussed this case with Dr. Islas who recommends transfer to [facility]. Spoke with Dr Sherman who accepts this transfer. Patient was given Unasyn within 3 hours of presentation. She was also given clindamycin. - Lab Data Result diagrams: 04/24/19 15:47 04/24/19 15:47 Lab Results 04/24/19 04/24/19 04/24/19 Range/Units 15:13 15:13 15:47 WBC 15.5 H (3.8-10.6) k/uL RBC 4.93 (3.80-5.40) m/uL Hgb 14.4 (11.4-16.0) gm/dL Hct 42.5 (34.0-46.0) % MCV 86.2 (80.0-100.0) fL MCH 29.3 (25.0-35.0) pg MCHC 34.0 (31.0-37.0) g/dL RDW 12.9 (11.5-15.5) % Plt Count 383 (150-450) k/uL Neutrophils % 77 % Lymphocytes % 12 % Monocytes % 7 % Eosinophils % 1 % Basophils % 1 % Neutrophils # 12.0 H (1.3-7.7) k/uL Lymphocytes # 1.9 (1.0-4.8) k/uL Monocytes # 1.1 H (0-1.0) k/uL Eosinophils # 0.1 (0-0.7) k/uL Basophils # 0.2 (0-0.2) k/uL Sodium (137-145) mmol/L Potassium (3.5-5.1) mmol/L Chloride (98-107) mmol/L Carbon Dioxide (22-30) mmol/L Anion Gap mmol/L BUN (7-17) mg/dL Creatinine (0.52-1.04) mg/dL Est GFR (CKD-EPI)AfAm (>60 ml/min/1.73 sqM) Est GFR (CKD-EPI)NonAf (>60 ml/min/1.73 sqM) Glucose (74-99) mg/dL Plasma Lactic Acid Sanchez (0.7-2.0) mmol/L Calcium (8.4-10.2) mg/dL Total Bilirubin (0.2-1.3) mg/dL AST (14-36) U/L ALT (9-52) U/L Alkaline Phosphatase (38-126) U/L Total Protein (6.3-8.2) g/dL Albumin (3.5-5.0) g/dL Urine Color Yellow Urine Appearance Cloudy H (Clear) Urine pH 6.5 (5.0-8.0) Ur Specific [place] 1.028 (1.001-1.035) Urine Protein 1+ H (Negative) Urine Glucose (UA) Negative (Negative) Urine Ketones Negative (Negative) Urine Blood Negative (Negative) Urine Nitrite Negative (Negative) Urine Bilirubin Negative (Negative) Urine Urobilinogen 2.0 (<2.0) mg/dL Ur Leukocyte Esterase Negative (Negative) Urine RBC 2 (0-5) /hpf Urine WBC 2 (0-5) /hpf Ur Squamous Epith Cells 18 H (0-4) /hpf Amorphous Sediment Occasional H (None) /hpf Urine Bacteria Rare H (None) /hpf Urine Mucus Occasional H (None) /hpf Urine HCG, Qual Not Detected (Not Detectd) Influenza Type A RNA (Not Detectd) Influenza Type B (PCR) (Not Detectd) 04/24/19 04/24/19 04/24/19 Range/Units 15:47 15:47 16:15 WBC (3.8-10.6) k/uL RBC (3.80-5.40) m/uL Hgb (11.4-16.0) gm/dL Hct (34.0-46.0) % MCV (80.0-100.0) fL MCH (25.0-35.0) pg MCHC (31.0-37.0) g/dL RDW (11.5-15.5) % Plt Count (150-450) k/uL Neutrophils % % Lymphocytes % % Monocytes % % Eosinophils % % Basophils % % Neutrophils # (1.3-7.7) k/uL Lymphocytes # (1.0-4.8) k/uL Monocytes # (0-1.0) k/uL Eosinophils # (0-0.7) k/uL Basophils # (0-0.2) k/uL Sodium 137 (137-145) mmol/L Potassium 4.4 (3.5-5.1) mmol/L Chloride 102 (98-107) mmol/L Carbon Dioxide 24 (22-30) mmol/L Anion Gap 11 mmol/L BUN 15 (7-17) mg/dL Creatinine 0.93 (0.52-1.04) mg/dL Est GFR (CKD-EPI)AfAm >90 (>60 ml/min/1.73 sqM) Est GFR (CKD-EPI)NonAf 89 (>60 ml/min/1.73 sqM) Glucose 93 (74-99) mg/dL Plasma Lactic Acid Sanchez 1.0 (0.7-2.0) mmol/L Calcium 9.5 (8.4-10.2) mg/dL Total Bilirubin 0.6 (0.2-1.3) mg/dL AST 26 (14-36) U/L ALT 28 (9-52) U/L Alkaline Phosphatase 72 (38-126) U/L Total Protein 8.0 (6.3-8.2) g/dL Albumin 4.5 (3.5-5.0) g/dL Urine Color Urine Appearance (Clear) Urine pH (5.0-8.0) Ur Specific [place] (1.001-1.035) Urine Protein (Negative) Urine Glucose (UA) (Negative) Urine Ketones (Negative) Urine Blood (Negative) Urine Nitrite (Negative) Urine Bilirubin (Negative) Urine Urobilinogen (<2.0) mg/dL Ur Leukocyte Esterase (Negative) Urine RBC (0-5) /hpf Urine WBC (0-5) /hpf Ur Squamous Epith Cells (0-4) /hpf Amorphous Sediment (None) /hpf Urine Bacteria (None) /hpf Urine Mucus (None) /hpf Urine HCG, Qual (Not Detectd) Influenza Type A RNA Not Detected (Not Detectd) Influenza Type B (PCR) Not Detected (Not Detectd) Disposition Clinical Impression: Mastoiditis, Otitis externa Disposition: OTHER INSTITUTION NOT DEFINED Condition: Fair Is patient prescribed a controlled substance at d/c from ED?: No Referrals: Chandra Leo MD [Primary Care Provider] - 1-2 days Time of Disposition: 17:46 - Out of Hospital Transfer - Req. Specs Out of Hospital Transfer - Requested Specifics: Other Emergency Center ([facility])
[2019-04-24] MEDS: SODIUM CHLORIDE 0.9% 500 ML 500 ML IV SCH ×2 (15:50→16:07)
[2019-04-24] MEDS: ONDANSETRON 4 MG/2 ML VIAL IVP STA ×2 (15:51→16:04)
[2019-04-24 16:01] LABS: Basophils # (A) 0.2 k/uL (0-0.2); Basophils % (A) 1 %; Eosinophils # (A) 0.1 k/uL (0-0.7); Eosinophils % (A) 1 %; HCT 42.5 % (34.0-46.0); HGB 14.4 gm/dL (11.4-16.0); Lymphocytes # (A) 1.9 k/uL (1.0-4.8); Lymphocytes % (A) 12 %; MCH 29.3 pg (25.0-35.0); MCV 86.2 fL (80.0-100.0); Mean Platelet Volume 5.8; Monocytes # (A) 1.1 k/uL (0-1.0); Monocytes % (A) 7 %; Neutrophils % (A) 77 %; Platelet Count 383 k/uL (150-450); RBC 4.93 m/uL (3.80-5.40); RDW 12.9 % (11.5-15.5); WBC 15.5 k/uL (3.8-10.6)
[2019-04-24 16:04] LABS: Amorphous Sediment,Urine Occasional /hpf; Appearance,Urine Cloudy (Clear); Bacteria,Urine Rare /hpf; Bilirubin,Urine Negative (Negative); Blood,Urine Negative (Negative); Color,Urine Yellow; Glucose,Urine (UA) Negative (Negative); Ketones,Urine Negative (Negative); Leukocyte Esterase,Urine Negative (Negative); Mucus,Urine Occasional /hpf; Nitrite,Urine Negative (Negative); PH, Urine 6.5 (5.0-8.0); Protein,Urine 1+ (Negative); RBC,Urine 2 /hpf (0-5); Specific Gravity,Urine 1.028 (1.001-1.035); Squamous Epithelial Cell,Urine 18 /hpf (0-4); WBC,Urine 2 /hpf (0-5)
[2019-04-24 16:13] LABS: ALT 28 U/L (9-52); AST 26 U/L (14-36); African American GFR (CKD) >90 (>60 ml/min/1.73 sqM); Albumin 4.5 g/dL (3.5-5.0); Alkaline Phosphatase 72 U/L (38-126); Anion Gap 11 mmol/L; Blood Urea Nitrogen 15 mg/dL (7-17); Calcium 9.5 mg/dL (8.4-10.2); Carbon Dioxide 24 mmol/L (22-30); Chloride 102 mmol/L (98-107); Glucose 93 mg/dL (74-99); Potassium 4.4 mmol/L (3.5-5.1); Sodium 137 mmol/L (137-145); Total Bilirubin 0.6 mg/dL (0.2-1.3)
--- NOTE | 2019-04-24 16:28 | CT ---
EXAMINATION TYPE: CT iac w con DATE OF EXAM: 04/24/2019 COMPARISON: None HISTORY: Bilat ear tenderness with drainage. Prior ear infection with bone erosion of ear canal CT DLP: 241.7 mGycm. Automated Exposure Control for Dose Reduction was Utilized. TECHNIQUE: CT scan of internal auditory canal is performed without contrast, thin cut axial images ar e obtained, coronal reformatted images are also reviewed. FINDINGS: There is narrowing of the right external auditory canal. There is narrowing obstruction of the left external auditory canal. The middle ear ossicles are symmetric and unremarkable. Small amount of fluid appears to be within th e middle ear is bilaterally. This extends into the left hepatic. Incus and malleus appear normal bila terally. Cochlea and semicircular canals are normal. There is fluid within the left mastoid air cells. Temporomandibular joints are maintained bilaterally. Visualized paranasal sinuses are grossly clear. Visualized portion brain parenchyma is felt within normal limits. IMPRESSION: 1. Clinical correlation recommended for external auditory canal otitis. 2. Left mastoiditis. 3. There is a small amount of fluid without osseous destruction within the bilateral attics.
[2019-04-24] MEDS ORDERED: CLINDAMYCIN 600 MG in DEXTROSE 5% IN WATER 50 ML IVPB STA ×2 (16:34)
[2019-04-24 18:49] VITALS: BP 119/66; PULSE 94; TEMP 97.7
== END 2019-04-24 19:02 | disposition other institution (70) ==
LOC: EC 14:50
DX: H60.93 Unspecified otitis externa, bilateral (principal); H70.92 Unspecified mastoiditis, left ear; F17.200 Nicotine dependence, unspecified, uncomplicated; Z91.018 Allergy to other foods
CPT/HCPCS: 36415; 80053; 83605; 85025; 81001; 81025; 87040; 87502; 70481; 99284; 96365; 96367; 96375 ×2; J2405; J1885; J0295; Q9967

== ENCOUNTER 2019-07-29 23:52 | Emergency (ER) | payer OTHER ==
[2019-07-30 00:02] VITALS: BP 120/83; PULSE 100; RESP 20; TEMP 98.1
--- NOTE | 2019-07-30 00:19 | ED ---
Extremity Problem HPI - General Chief complaint: Extremity Problem,Nontraumatic Stated complaint: L Shoulder Pain Time Seen by Provider: 07/30/19 00:05 Source: patient Mode of arrival: ambulatory Limitations: no limitations - History of Present Illness Initial comments: Yandy is a 24-year-old female who presents to the ER today for evaluation of 1 week of left-sided shoulder pain. Patient reports that as a teenager she had an injury to the shoulder while and marching band and was advised that she likely had damaged her rotator cuff and to avoid any heavy lifting. She reports that she never followed up with anybody about this with her shoulder doesn't bother her. 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 She's not taken any Tylenol Motrin or Aleve for this. She's not tried any heat or ice. She reports that worse when she strained to move people. Worse with abduction or extension. Pain improves with rest. Pain is similar to her previous rotator cuff injury. Patient reports that the pain seems to be worsening which prompted her to come to the ER for evaluation. Patient denies any specific traumas or falls. She denies any previous surgeries. Denies any associated symptoms. - Related Data Home Medications Medication Instructions Recorded Confirmed Ibuprofen [Motrin Ib] 800 mg PO TID PRN 04/24/19 04/24/19 Allergies Allergy/AdvReac Type Severity Reaction Status Date / Time Mushroom Allergy Rash/Hives Verified 07/30/19 00:02 Review of Systems ROS Statement: Those systems with pertinent positive or pertinent negative responses have been documented in the HPI. ROS Other: All systems not noted in ROS Statement are negative. Past Medical History Past Medical History: No Reported History History of Any Multi-Drug Resistant Organisms: None Reported Past Surgical History: Cholecystectomy, Ear Surgery, Tonsillectomy Additional Past Surgical History / Comment(s): liver surgery. Past Anesthesia/Blood Transfusion Reactions: No Reported Reaction Past Psychological History: No Psychological Hx Reported Smoking Status: Current every day smoker Past Alcohol Use History: None Reported Past Drug Use History: None Reported - Past Family History Mother Additional Family Medical History / Comment(s): DEGENERATIVE BONE DISEASE General Exam - General Exam Comments Initial Comments: Physical Exam GENERAL: Morbidly obese female in no acute distress HENT: Normocephalic, Atraumatic. EYES: PERRL, EOMI PULMONARY: Unlabored respirations. CARDIOVASCULAR: RRR Warm and well perfused extremities ABDOMEN: Non-distended SKIN: No rashes or bruising : Deferred NEUROLOGIC: Alert and oriented Normal speech Normal gait MUSCULOSKELETAL: Decreased ROM of left shoulder due to pain - pain exacerbated with abduction, extension or pronation Left shoulder not erythematous or warm to touch PSYCHIATRIC: No SI/HI Limitations: no limitations Course Vital Signs 07/29/19 23:59 Temperature 98.1 F Pulse Rate 100 Respiratory 20 Rate Blood Pressure 120/83 O2 Sat by Pulse 98 Oximetry Medical Decision Making - Medical Decision Making The patient was seen and evaluated history is obtained from patient history and physical exam are concerning for a likely chronic repetitive use injury likely related to her job. No acute injuries. His exam is concerning for rotator cuff tendinitis. This was discussed with the patient. I recommend supportive care with rest, ice, alternating anti-inflammatories and follow-up with primary care or orthopedics. Patient is agreement with this. At this time I don't feel there is any indication for x-rays as I have no concern for fracture dislocation, patient is in agreement with this as well. All questions pertaining care were answered return parameters were discussed the patient was discharged home in stable condition. Disposition Clinical Impression: Left shoulder pain Disposition: HOME SELF-CARE Condition: Stable Instructions (If sedation given, give patient instructions): Rotator Cuff Tendinitis (ED) Additional Instructions: Alternate Tylenol and Motrin for pain. Apply heat or ice for you can alternate applying H1 for 15 minutes and giving her some 15 minutes rest. Do not apply ice or heating pad directly on the skin. Avoid heavy lifting or any activities that cause pain to the shoulder. Follow-up with primary care physician for referral to orthopedics. Is patient prescribed a controlled substance at d/c from ED?: No Referrals: Chandra Leo MD [Primary Care Provider] - 1-2 days
== END 2019-07-30 00:28 | disposition home or self-care (01) ==
LOC: EC 23:52
DX: M25.512 Pain in left shoulder (principal); F17.200 Nicotine dependence, unspecified, uncomplicated; Z91.018 Allergy to other foods; Z87.828 Personal history of other (healed) physical injury and trauma; Z82.69 Family history of other diseases of the musculoskeletal system and connective tissue; X58.XXXA Exposure to other specified factors, initial encounter
CPT/HCPCS: 99283

== ENCOUNTER 2019-08-27 09:51 | Emergency (ER) | payer OTHER ==
[2019-08-27 10:05] VITALS: TEMP 98.2
[2019-08-27] MEDS ORDERED: KETOROLAC 30 MG/ML 1 ML VIAL IM STA (10:58)
[2019-08-27 11:00] LABS: Appearance,Urine Cloudy (Clear); Bacteria,Urine Rare /hpf; Bilirubin,Urine Negative (Negative); Blood,Urine Negative (Negative); Color,Urine Yellow; Glucose,Urine (UA) Negative (Negative); Ketones,Urine Negative (Negative); Leukocyte Esterase,Urine Negative (Negative); Mucus,Urine Rare /hpf; Nitrite,Urine Negative (Negative); PH, Urine 5.5 (5.0-8.0); Protein,Urine Negative (Negative); RBC,Urine <1 /hpf (0-5); Squamous Epithelial Cell,Urine 13 /hpf (0-4); Urobilinogen,Urine <2.0 mg/dL (<2.0); WBC,Urine 1 /hpf (0-5)
--- NOTE | 2019-08-27 11:08 | ED ---
General Adult HPI - General Chief complaint: Extremity Injury, Lower Stated complaint: Left Hip Pain Time Seen by Provider: 08/27/19 10:28 Source: patient, RN notes reviewed Mode of arrival: ambulatory Limitations: no limitations - History of Present Illness Initial comments: 24-year-old female presents to the emergency department for chief clinic of Left hip pain. Patient states that this started about one week ago. Patient states that she woke up with this pain. States she has been working frequently on her feet and thinks she may have injured her hip. Patient states the pain worsens with walking. States she is limping because of the pain in her left hip. States it is also in her left lateral lower back. Denies any fevers or chills. Denies dysuria or difficulty urinating. Denies any abdominal pain. She has been taking Motrin for this pain which did help initially but is not helping at this point.Patient has no other complaints at this time including shortness of breath, chest pain, abdominal pain, nausea or vomiting, headache, or visual changes. - Related Data Home Medications Medication Instructions Recorded Confirmed Ibuprofen [Motrin Ib] 800 mg PO TID PRN 04/24/19 04/24/19 Allergies Allergy/AdvReac Type Severity Reaction Status Date / Time Mushroom Allergy Rash/Hives Verified 08/27/19 10:02 Review of Systems ROS Statement: Those systems with pertinent positive or pertinent negative responses have been documented in the HPI. ROS Other: All systems not noted in ROS Statement are negative. Past Medical History Past Medical History: No Reported History History of Any Multi-Drug Resistant Organisms: None Reported Past Surgical History: Cholecystectomy, Ear Surgery, Tonsillectomy Additional Past Surgical History / Comment(s): liver surgery. Past Anesthesia/Blood Transfusion Reactions: No Reported Reaction Past Psychological History: No Psychological Hx Reported Smoking Status: Current every day smoker Past Alcohol Use History: None Reported Past Drug Use History: None Reported - Past Family History Mother Additional Family Medical History / Comment(s): DEGENERATIVE BONE DISEASE General Exam Limitations: no limitations General appearance: alert, in no apparent distress Head exam: Present: atraumatic, normocephalic, normal inspection Eye exam: Present: normal appearance, PERRL, EOMI. Absent: scleral icterus, conjunctival injection, periorbital swelling ENT exam: Present: normal exam, mucous membranes moist Neck exam: Present: normal inspection, full ROM. Absent: tenderness, meningismus Respiratory exam: Present: normal lung sounds bilaterally. Absent: respiratory distress, wheezes, rales, rhonchi, stridor Cardiovascular Exam: Present: regular rate, normal rhythm, normal heart sounds. Absent: systolic murmur, diastolic murmur, rubs, gallop, clicks GI/Abdominal exam: Present: soft, normal bowel sounds. Absent: distended, tenderness, guarding, rebound, rigid Extremities exam: Present: full ROM (Patient is able to fully flex the hip but has pain elicited when doing so. External rotation of the left hip also elicits pain.), normal capillary refill (Capillary refill less than 2 seconds, DP pulse 2+ in the left lower extremity.), other (Antalgic gait of the left hip noted) Back exam: Absent: CVA tenderness (R), CVA tenderness (L), vertebral tenderness Neurological exam: Present: alert Course Vital Signs 08/27/19 08/27/19 08/27/19 10:02 10:04 11:04 Temperature 98.2 F Pulse Rate 130 H 72 Respiratory 18 20 20 Rate Blood Pressure 133/74 130/89 O2 Sat by Pulse 98 99 Oximetry Medical Decision Making - Medical Decision Making Patient is a 24-year-old obese female who presents for left ear pain times one week. Denies any low back pain aside from some left lateral SI joint pain that radiates to the hip. Denies bladder or bowel changes. Denies numbness or tingling in the groin or buttock. On exam patient does have pain with full flexion of the hip as well as external rotation however range of motion is intact. There is no erythema. No evidence of a septic joint. No history of fevers. Patient is able to ambulate on the left hip but does have antalgic gait. Neurovascular status intact the left portion me. X-ray of the left hip and pelvis showed no acute osseous lesion. Urinalysis does not show any evidence of infection or hematuria. Patient was given Toradol which did help with her pain. Patient continues to have the ability to ambulate throughout the department. At this time patient be discharged home to follow up with orthopedics. She'll return if she has any worsening symptoms.I discussed this case with attending Dr. Hein who agrees with this assessment and treatment plan. - Lab Data Lab Results 08/27/19 08/27/19 Range/Units 10:40 10:40 Urine Color Yellow Urine Appearance Cloudy H (Clear) Urine pH 5.5 (5.0-8.0) Ur Specific [place] 1.020 (1.001-1.035) Urine Protein Negative (Negative) Urine Glucose (UA) Negative (Negative) Urine Ketones Negative (Negative) Urine Blood Negative (Negative) Urine Nitrite Negative (Negative) Urine Bilirubin Negative (Negative) Urine Urobilinogen <2.0 (<2.0) mg/dL Ur Leukocyte Esterase Negative (Negative) Urine RBC <1 (0-5) /hpf Urine WBC 1 (0-5) /hpf Ur Squamous Epith Cells 13 H (0-4) /hpf Urine Bacteria Rare H (None) /hpf Urine Mucus Rare H (None) /hpf Urine HCG, Qual Not Detected (Not Detectd) Disposition Clinical Impression: Hip pain, left Disposition: HOME SELF-CARE Condition: Good Instructions (If sedation given, give patient instructions): Hip Pain (ED) Additional Instructions: Please take Motrin and Tylenol for pain. You may alternate these every 3 hours. Please follow-up with orthopedics in one to 2 days. Return to the emergency department if you have any worsening symptoms. Is patient prescribed a controlled substance at d/c from ED?: No Referrals: Chandra Leo MD [Primary Care Provider] - 1-2 days Selwyn Danielson DO [Doctor of Osteopathic Medicine] - 1-2 days Time of Disposition: 11:42
[2019-08-27 11:10] VITALS: RESP 20
[2019-08-27 11:14] VITALS: BP 130/89; PULSE 72
--- NOTE | 2019-08-27 11:32 | XR ---
EXAMINATION TYPE: XR Hip LT and AP Pelvis , 3 VIEWS DATE OF EXAM ORDERED: 08/27/2019 HISTORY: pain. COMPARISON: None. FINDINGS: Osseous structures about the pelvis are normal. The hip joints are well-maintained. No fra cture is seen. IMPRESSION: NO ACUTE OSSEOUS LESION.
== END 2019-08-27 11:55 | disposition home or self-care (01) ==
LOC: EC 09:51
DX: M25.552 Pain in left hip (principal); E66.9 Obesity, unspecified; M53.3 Sacrococcygeal disorders, not elsewhere classified; M54.5 Low back pain; F17.200 Nicotine dependence, unspecified, uncomplicated; Z91.018 Allergy to other foods; Z68.42 Body mass index [BMI] 45.0-49.9, adult; Z82.69 Family history of other diseases of the musculoskeletal system and connective tissue
CPT/HCPCS: 81001; 81025; 73502; 99284; 96372; J1885

== ENCOUNTER 2019-08-28 18:27 | Emergency (ER) | payer OTHER ==
[2019-08-28 18:38] VITALS: TEMP 97.3
--- NOTE | 2019-08-28 19:59 | XR ---
EXAMINATION TYPE: XR lumbar spine 2 or 3V DATE OF EXAM: 08/28/2019 COMPARISON: NONE HISTORY: Hip pain TECHNIQUE: 3 views FINDINGS: Lumbar vertebra have fairly normal alignment. Disc spaces are normal. Posterior elements ar e intact. Sacroiliac joints appear normal. IMPRESSION: Normal lumbar spine.
[2019-08-28] MEDS ORDERED: ACET/COD 300 MG/30 MG STARTER PACK 6 TAB BTL PO STA (20:36)
--- NOTE | 2019-08-28 20:36 | ED ---
Extremity Problem HPI - General Chief complaint: Extremity Problem,Nontraumatic Stated complaint: left hip pain Time Seen by Provider: 08/28/19 18:58 Source: patient Mode of arrival: ambulatory Limitations: no limitations - History of Present Illness Initial comments: 24-year-old female presenting today for chief complaint of left hip pain x 1 week. Patient states she has left hip pain for the past week. She states she often lips people at work. Patient denies any specific injury denies any falls or trauma. Patient denies any specific low back pain denies any loss of bowel bladder control urinary retention she denies it radiating down her buttock patient denies a loss of sensation decreased range of motion of the lower extremities denies any weakness denies any fevers chills IV drug use history of cancer. Patient denies rashes, lower extremity pain, chest pain shortness of breath, hematura, flank pain. Patient has no other complaints. - Related Data Home Medications Medication Instructions Recorded Confirmed Ibuprofen [Motrin Ib] 800 mg PO TID PRN 04/24/19 04/24/19 Allergies Allergy/AdvReac Type Severity Reaction Status Date / Time Mushroom Allergy Rash/Hives Verified 08/27/19 10:02 Review of Systems ROS Statement: Those systems with pertinent positive or pertinent negative responses have been documented in the HPI. ROS Other: All systems not noted in ROS Statement are negative. Past Medical History Past Medical History: No Reported History History of Any Multi-Drug Resistant Organisms: None Reported Past Surgical History: Cholecystectomy, Ear Surgery, Tonsillectomy Additional Past Surgical History / Comment(s): liver surgery. Past Anesthesia/Blood Transfusion Reactions: No Reported Reaction Past Psychological History: No Psychological Hx Reported Smoking Status: Current every day smoker Past Alcohol Use History: None Reported Past Drug Use History: None Reported - Past Family History Mother Additional Family Medical History / Comment(s): DEGENERATIVE BONE DISEASE General Exam - General Exam Comments Initial Comments: General: The patient is awake and alert, in no distress, and does not appear acutely ill. Eye: Pupils are equal, round and reactive to light, extra-ocular movements are intact. No nystagmus. There is normal conjunctiva bilaterally. No signs of icterus. Cardiovascular: There is a regular rate and rhythm. No murmur, rub or gallop is appreciated. Respiratory: Lungs are clear to auscultation, respirations are non-labored, breath sounds are equal. No wheezes, stridor, rales, or rhonchi. Musculoskeletal: Upon inspection and has bilaterally there is no acute abnormalities no redness. Patient is able to fully range the hips bilaterally negative straight leg raise P patient of the metatarsal patient of the cervical thoracic or lumbar spine. Patient has no saddle anesthesia. Patient has full strength, sensation intact of the lower extremities. Patient has strong +2 dorsalis pedis pulses bilaterally. Patient is able to ambulate without difficulty. Neurological: A&O x 3. CN II-XII intact, There are no obvious motor or sensory deficits. Coordination appears grossly intact. Speech is normal. Skin: Skin is warm and dry and no rashes or lesions are noted. Psychiatric: Cooperative, appropriate mood & affect, normal judgment. Limitations: no limitations Course Vital Signs 08/28/19 08/28/19 18:33 20:56 Temperature 97.3 F L Pulse Rate 101 H 81 Respiratory 20 18 Rate Blood Pressure 161/98 114/70 O2 Sat by Pulse 98 95 Oximetry Medical Decision Making - Medical Decision Making 24-year-old female presenting today for chief complaint of left hip pain. Patient states that sometimes it feels like it coming from the back. Imaging studies of the lumbar spine reveal no acute osseous abnormality. Patient denies any falls or trauma. No signs of cauda equina. Patient and vital difficulty and has a normal peripheral vascular examination. There is no skin changes of the left hip no fevers or general malaise. Patient's vital signs stable. At this time feel patient is stable for discharge with symptomatically treatment and follow-up with primary care provider. Return parameters were discussed at length patient verbalized understanding and she was discharged appearing well - Lab Data Lab Results 08/28/19 Range/Units 19:32 Urine HCG, Qual Not Detected (Not Detectd) Disposition Clinical Impression: Left hip pain, Low back pain, Elevated blood pressure reading Disposition: HOME SELF-CARE Condition: Good Instructions (If sedation given, give patient instructions): Low Back Strain (ED), Back Pain (ED) Additional Instructions: Please use medication as discussed. Please follow-up with family doctor in the next 2 days. Please return to emergency room if the symptoms increase or worsen or for any other concerns. Is patient prescribed a controlled substance at d/c from ED?: No Referrals: Chandra Leo MD [Primary Care Provider] - 1-2 days [facility] [NON-STAFF] - 1-2 days Time of Disposition: 20:36
[2019-08-28] MEDS ORDERED: IBUPROFEN 600 MG TAB PO STA (20:53)
[2019-08-28 20:59] VITALS: BP 114/70; PULSE 81; RESP 18
== END 2019-08-28 20:59 | disposition home or self-care (01) ==
LOC: EC 18:27
DX: M25.552 Pain in left hip (principal); M54.5 Low back pain; R03.0 Elevated blood-pressure reading, without diagnosis of hypertension; F17.200 Nicotine dependence, unspecified, uncomplicated; Z91.018 Allergy to other foods; Z82.69 Family history of other diseases of the musculoskeletal system and connective tissue
CPT/HCPCS: 72100; 81025; 99283

== ENCOUNTER 2020-09-09 10:51 | Emergency (ER) | payer OTHER ==
[2020-09-09 11:34] VITALS: BP 146/90; PULSE 85; RESP 18
[2020-09-09 12:21] VITALS: TEMP 100.6
[2020-09-09] MEDS ORDERED: IBUPROFEN 600 MG TAB PO STA (12:34)
[2020-09-09] MEDS ORDERED: ACETAMINOPHEN TAB 500 MG TAB PO STA (12:34)
[2020-09-09] MEDS ORDERED: OFLOXACIN 0.3% OPHTH DROPS 5 ML BOTTLE LEFT EAR STA (12:35)
[2020-09-09] MEDS ORDERED: AMOXIC-POT CLAV 875MG STARTER PACK 2 TAB BTL PO STA (12:45)
--- NOTE | 2020-09-09 12:55 | ED ---
General Adult HPI - General Chief complaint: ENT Stated complaint: ENT Time Seen by Provider: 09/09/20 12:03 Source: patient, RN notes reviewed Mode of arrival: ambulatory Limitations: no limitations - History of Present Illness Initial comments: 25-year-old female presents to the ER for chief of right ear pain. Patient states it started last night. States it is very painful to touch. States sometimes it shoots down to her shoulder. Patient denies noticing any fevers or chills but is noted to have a low-grade fever on arrival. Patient denies he adache. Patient denies history of diabetes mellitus. Patient has no other complaints at this time including shortness of breath, chest pain, abdominal pain, nausea or vomiting, headache, or visual changes. - Related Data Home Medications Medication Instructions Recorded Confirmed Ibuprofen [Motrin Ib] 800 mg PO TID PRN 04/24/19 04/24/19 Previous Rx's Medication Instructions Recorded Acetaminophen [Tylenol] 500 mg PO Q4-6H PRN #20 tab 09/09/20 Amoxicillin/Potassium Clav 1 tab PO Q12HR #20 tab 09/09/20 [Augmentin 875-125 Tablet] Ibuprofen [Motrin] 600 mg PO Q8HR PRN #20 tab 09/09/20 Ofloxacin 0.3% Ophth Soln [Ocuflox 10 drops RIGHT EAR DAILY 7 Days 09/09/20 Ophth Soln] #10 ml Allergies Allergy/AdvReac Type Severity Reaction Status Date / Time Mushroom Allergy Rash/Hives Verified 09/09/20 11:34 Review of Systems ROS Statement: Those systems with pertinent positive or pertinent negative responses have been documented in the HPI. ROS Other: All systems not noted in ROS Statement are negative. Past Medical History Past Medical History: No Reported History History of Any Multi-Drug Resistant Organisms: None Reported Past Surgical History: Cholecystectomy, Ear Surgery, Tonsillectomy Additional Past Surgical History / Comment(s): liver surgery. Past Anesthesia/Blood Transfusion Reactions: No Reported Reaction Past Psychological History: No Psychological Hx Reported Smoking Status: Current every day smoker Past Alcohol Use History: None Reported Past Drug Use History: None Reported - Past Family History Mother Additional Family Medical History / Comment(s): DEGENERATIVE BONE DISEASE General Exam Limitations: no limitations General appearance: alert, in no apparent distress Head exam: Present: atraumatic, normocephalic, normal inspection Eye exam: Present: normal appearance, PERRL, EOMI. Absent: scleral icterus, conjunctival injection, periorbital swelling ENT exam: Present: normal exam, normal oropharynx. Absent: TM's normal bilaterally, normal external ear exam (She has mild edema of the external auditory canal with purulent drainage. Tenderness with traction of the tragus. No mastoid tenderness. No edema of the pinna. No spreading or streaking redness.) Neck exam: Present: normal inspection, full ROM. Absent: tenderness, meningismus, lymphadenopathy Respiratory exam: Present: normal lung sounds bilaterally. Absent: respiratory distress, wheezes, rales, rhonchi, stridor Cardiovascular Exam: Present: regular rate, normal rhythm, normal heart sounds. Absent: systolic murmur, diastolic murmur, rubs, gallop, clicks Course Vital Signs 09/09/20 09/09/20 11:31 12:16 Temperature 99.7 F H 100.6 F H Pulse Rate 85 Respiratory 18 Rate Blood Pressure 146/90 O2 Sat by Pulse 99 Oximetry Medical Decision Making - Medical Decision Making Patient presents with pain of the right ear. She does have a low-grade fever of 100.6. Last took Tylenol 8 hours ago. No Motrin today. Patient does have some purulent drainage from the right ear with mild edema of the external auditory canal. I am unable to evaluate the tympanic membrane. Patient has full range of motion of the neck. No tenderness to the mastoid process. States the pain sometimes radiates down to the shoulder however no tenderness of this area. No edema of the face. No edema of the pinna. Patient does not have diabetes nor is she immunocompromised. No medical history. Case discussed with Dr. Kelly. Mai was placed. We will treat patient with ofloxacin. We will also treat patient with Augmentin given we cannot evaluate the tympanic membrane. She will follow up with primary care. We will also give ENT referral. She will return here for any worsening symptoms. Disposition Clinical Impression: Otitis externa Disposition: HOME SELF-CARE Condition: Good Instructions (If sedation given, give patient instructions): Otitis Externa (ED) Additional Instructions: Please take Motrin and Tylenol for pain and fever. Take Augmentin as directed for antibiotic coverage. Make sure to do the antibiotic drops as directed. Put 10 drops in the right ear and then lay for 30 minutes. If symptoms are worsening he should return to the emergency room. Otherwise follow-up with ENT or primary care. Prescriptions: Amoxicillin/Potassium Clav [Augmentin 875-125 Tablet] 1 tab PO Q12HR #20 tab Ibuprofen [Motrin] 600 mg PO Q8HR PRN #20 tab PRN Reason: Pain Ofloxacin 0.3% Ophth Soln [Ocuflox Ophth Soln] 10 drops RIGHT EAR DAILY 7 Days #10 ml Acetaminophen [Tylenol] 500 mg PO Q4-6H PRN #20 tab PRN Reason: Pain Is patient prescribed a controlled substance at d/c from ED?: No Referrals: Chandra Leo MD [Primary Care Provider] - 1-2 days Kameron Leigh MD [STAFF PHYSICIAN] - 1-2 days Time of Disposition: 12:53
== END 2020-09-09 13:20 | disposition home or self-care (01) ==
LOC: EC 10:51
DX: H60.91 Unspecified otitis externa, right ear (principal); F17.200 Nicotine dependence, unspecified, uncomplicated; Z79.1 Long term (current) use of non-steroidal anti-inflammatories (NSAID)
CPT/HCPCS: 99282

== ENCOUNTER 2020-09-17 15:45 | Emergency (ER) | payer BC, OTHER ==
[2020-09-17 16:24] VITALS: BP 121/74; PULSE 94; RESP 18; TEMP 98.2
[2020-09-17 17:24] LABS: Glucose,Whole Blood 88 mg/dL (75-99)
--- NOTE | 2020-09-17 17:26 | ED ---
General Adult HPI - General Chief complaint: ENT Stated complaint: ear pain/drainage Time Seen by Provider: 09/17/20 16:48 Source: patient, RN notes reviewed, old records reviewed Mode of arrival: ambulatory Limitations: no limitations - History of Present Illness Initial comments: 25-year-old female presents for evaluation of ear pain and drainage. Patient states she's had drainage from both the ears over the past several days. She was diagnosed with an otitis externa on the right approximately 2 weeks ago. She states she completed both oral antibiotics and topical antibiotics. She was unable to be seen by ENT. She has history of recurrent otitis media with eardrum perforation as well as otitis externa a. She is a nondiabetic. She denies fever or constitutional symptoms. - Related Data Home Medications Medication Instructions Recorded Confirmed Ibuprofen [Motrin Ib] 800 mg PO TID PRN 04/24/19 04/24/19 Previous Rx's Medication Instructions Recorded Acetaminophen [Tylenol] 500 mg PO Q4-6H PRN #20 tab 09/09/20 Amoxicillin/Potassium Clav 1 tab PO Q12HR #20 tab 09/09/20 [Augmentin 875-125 Tablet] Ibuprofen [Motrin] 600 mg PO Q8HR PRN #20 tab 09/09/20 Ofloxacin 0.3% Ophth Soln [Ocuflox 10 drops RIGHT EAR DAILY 7 Days 09/09/20 Ophth Soln] #10 ml Amoxicillin/Potassium Clav 1 tab PO Q12HR 10 Days #20 tab 09/17/20 [Augmentin 875-125 Tablet] Ofloxacin 0.3% Otic Soln [Floxin 5 drops BOTH EARS BID #10 ml 09/17/20 0.3% Otic Soln] Allergies Allergy/AdvReac Type Severity Reaction Status Date / Time Mushroom Allergy Rash/Hives Verified 09/17/20 16:22 Review of Systems ROS Statement: Those systems with pertinent positive or pertinent negative responses have been documented in the HPI. ROS Other: All systems not noted in ROS Statement are negative. Past Medical History Past Medical History: No Reported History History of Any Multi-Drug Resistant Organisms: None Reported Past Surgical History: Cholecystectomy, Ear Surgery, Tonsillectomy Additional Past Surgical History / Comment(s): liver surgery. Past Anesthesia/Blood Transfusion Reactions: No Reported Reaction Past Psychological History: No Psychological Hx Reported Smoking Status: Current every day smoker Past Alcohol Use History: None Reported Past Drug Use History: None Reported - Past Family History Mother Additional Family Medical History / Comment(s): DEGENERATIVE BONE DISEASE General Exam Limitations: no limitations General appearance: alert, in no apparent distress Head exam: Present: atraumatic, normocephalic Eye exam: Present: normal appearance, PERRL ENT exam: Present: other (Patient has perforation of the left eardrum with abnormal mass in the auditory canal, there is purulent drainage and otitis externa. The right TM cannot be visualized but there is an otitis externa on the right. ) Respiratory exam: Present: normal lung sounds bilaterally. Absent: respiratory distress, wheezes Cardiovascular Exam: Present: regular rate, normal rhythm GI/Abdominal exam: Present: soft. Absent: distended, tenderness, guarding Extremities exam: Present: normal inspection, normal capillary refill. Absent: pedal edema Course Vital Signs 09/17/20 09/17/20 16:22 17:28 Temperature 98.2 F 98.2 F Pulse Rate 94 94 Respiratory 18 18 Rate Blood Pressure 121/74 121/74 O2 Sat by Pulse 98 98 Oximetry Medical Decision Making - Medical Decision Making Patient will require ENT follow-up. She does have a bilateral otitis externa and a perforated eardrum on the left. She is placed on both oral and topical antibiotics. She's given ENT referral and instructed to follow up as soon as possible. She is nontoxic and otherwise well-appearing. There is no mastoid tenderness. No fever. - Lab Data Lab Results 09/17/20 Range/Units 17:22 POC Glucose (mg/dL) 88 (75-99) mg/dL POC Glu Craft Coordinator ID Daylin Lopez Disposition Clinical Impression: Perforated tympanic membrane, Otitis externa Disposition: HOME SELF-CARE Condition: Fair Instructions (If sedation given, give patient instructions): Ruptured Eardrum (ED), Ear Infection (ED), Earache (ED) Prescriptions: Amoxicillin/Potassium Clav [Augmentin 875-125 Tablet] 1 tab PO Q12HR 10 Days #20 tab Ofloxacin 0.3% Otic Soln [Floxin 0.3% Otic Soln] 5 drops BOTH EARS BID #10 ml Is patient prescribed a controlled substance at d/c from ED?: No Referrals: Chandra Leo MD [Primary Care Provider] - 1-2 days Kameron Leigh MD [STAFF PHYSICIAN] - 1-2 days Time of Disposition: 17:22
== END 2020-09-17 17:29 | disposition home or self-care (01) ==
LOC: EC 15:45
DX: H60.93 Unspecified otitis externa, bilateral (principal); H72.92 Unspecified perforation of tympanic membrane, left ear; H66.93 Otitis media, unspecified, bilateral; F17.200 Nicotine dependence, unspecified, uncomplicated; Z79.1 Long term (current) use of non-steroidal anti-inflammatories (NSAID)
CPT/HCPCS: 36415; 99283

== ENCOUNTER 2020-11-30 14:56 | Emergency (ER) | payer BC, OTHER ==
[2020-11-30 15:26] VITALS: TEMP 98.3
[2020-11-30 15:54] VITALS: RESP 18
[2020-11-30] MEDS ORDERED: IPRATROPIUM-ALBUTEROL 3 ML NEB INHALATION STA (16:00)
[2020-11-30] MEDS ORDERED: predniSONE 20 MG TAB PO STA (16:00)
--- NOTE | 2020-11-30 16:14 | ED ---
SOB HPI - General Chief Complaint: Shortness of Breath Stated Complaint: SOB Time Seen by Provider: 11/30/20 15:42 Source: patient Mode of arrival: wheelchair Limitations: no limitations - History of Present Illness Initial Comments: 25-year-old female with history of asthma presents to emergency department with a chief complaint of shortness of breath. Patient states she is wheezing and tightness in her chest due to an asthma exacerbation. States she used her albuterol inhaler with no improvement of symptoms. She denies any fevers or chills. States her symptoms began yesterday and have not improved today. Symptoms are exacerbated on exertion. Reports history of Covid in July of this year. She denies any fevers or chills or any URI-like symptoms. Denies any significant chest pain nausea vomiting diarrhea. - Related Data Home Medications Medication Instructions Recorded Confirmed Ibuprofen [Motrin Ib] 800 mg PO TID PRN 04/24/19 04/24/19 Previous Rx's Medication Instructions Recorded Acetaminophen [Tylenol] 500 mg PO Q4-6H PRN #20 tab 09/09/20 Amoxicillin/Potassium Clav 1 tab PO Q12HR #20 tab 09/09/20 [Augmentin 875-125 Tablet] Ibuprofen [Motrin] 600 mg PO Q8HR PRN #20 tab 09/09/20 Ofloxacin 0.3% Ophth Soln [Ocuflox 10 drops RIGHT EAR DAILY 7 Days 09/09/20 Ophth Soln] #10 ml Amoxicillin/Potassium Clav 1 tab PO Q12HR 10 Days #20 tab 09/17/20 [Augmentin 875-125 Tablet] Ofloxacin 0.3% Otic Soln [Floxin 5 drops BOTH EARS BID #10 ml 09/17/20 0.3% Otic Soln] Azithromycin [Zithromax Z-pack (6 0 mg PO DIRECTED #1 pack 11/30/20 tabs)] predniSONE 50 mg PO DAILY #5 tab 11/30/20 Allergies Allergy/AdvReac Type Severity Reaction Status Date / Time Mushroom Allergy Rash/Hives Verified 11/30/20 15:26 Review of Systems ROS Statement: Those systems with pertinent positive or pertinent negative responses have been documented in the HPI. ROS Other: All systems not noted in ROS Statement are negative. Past Medical History Past Medical History: Asthma History of Any Multi-Drug Resistant Organisms: None Reported Past Surgical History: Cholecystectomy, Ear Surgery, Tonsillectomy Additional Past Surgical History / Comment(s): liver surgery. Past Anesthesia/Blood Transfusion Reactions: No Reported Reaction Past Psychological History: No Psychological Hx Reported Smoking Status: Current every day smoker Past Alcohol Use History: None Reported Past Drug Use History: None Reported - Past Family History Mother Additional Family Medical History / Comment(s): DEGENERATIVE BONE DISEASE General Exam Limitations: no limitations General appearance: alert, in no apparent distress, obese Head exam: Present: atraumatic, normocephalic, normal inspection Eye exam: Present: normal appearance, PERRL, EOMI Pupils: Present: normal accommodation ENT exam: Present: normal exam, normal oropharynx, mucous membranes moist Neck exam: Present: normal inspection, full ROM. Absent: tenderness Respiratory exam: Present: wheezes (Diffuse bilateral wheezing), decreased breath sounds, prolonged expiratory Cardiovascular Exam: Present: regular rate, normal rhythm, normal heart sounds. Absent: systolic murmur Extremities exam: Present: normal inspection, full ROM, normal capillary refill. Absent: tenderness Back exam: Present: normal inspection, full ROM. Absent: tenderness Neurological exam: Present: alert, oriented X3 Psychiatric exam: Present: normal affect, normal mood Skin exam: Present: warm, dry, intact, normal color Course Vital Signs 11/30/20 11/30/20 11/30/20 15:21 15:53 16:26 Temperature 98.3 F Pulse Rate 94 Respiratory 20 18 18 Rate Blood Pressure 129/83 O2 Sat by Pulse 97 Oximetry 11/30/20 11/30/20 17:21 17:37 Temperature Pulse Rate 88 96 Respiratory Rate Blood Pressure O2 Sat by Pulse Oximetry Medical Decision Making - Medical Decision Making 25-year-old female with history of asthma presents to the emergency department with a chief complaint of shortness of breath. On physical examination, patient does appear to be short of breath with mild, diffuse bilateral wheezing and decreased breath sounds. However, patient does have morbid obesity. X-ray shows atelectasis versus early pneumonia. I will treat with a azithromycin. Patient was given 60 prednisone of prednisone and a DuoNeb treatment. On reevaluation, patient reports improve the symptoms. I will discharge with a 5 day course of prednisone. Advised to return to emergency department if her symptoms worsen. Follow-up with PCP. Case discussed with Dr. Taveras. - EKG Data EKG Comments: Sinus rhythm Ventricular rate 89,. 154, QRS 82, QTC 430. Disposition Clinical Impression: Asthma exacerbation Disposition: HOME SELF-CARE Condition: Stable Instructions (If sedation given, give patient instructions): COPD (Chronic Obstructive Pulmonary Disease) (DC) Additional Instructions: Please return to the Emergency Department if symptoms worsen or any other concerns. Prescriptions: predniSONE 50 mg PO DAILY #5 tab Azithromycin [Zithromax Z-pack (6 tabs)] 0 mg PO DIRECTED #1 pack Is patient prescribed a controlled substance at d/c from ED?: No Referrals: Chandra Leo MD [Primary Care Provider] - 1-2 days Time of Disposition: 17:54
--- NOTE | 2020-11-30 17:16 | XR ---
EXAMINATION TYPE: XR chest 2V DATE OF EXAM: 11/30/2020 COMPARISON: NONE HISTORY: Short of breath TECHNIQUE: 2 views FINDINGS: Heart and mediastinum are normal. There is no heart failure. There are no hilar masses. Bony thorax is intact. There is some linear den sity at the right pulmonary hilum. IMPRESSION: Right side mild linear density could relate to some right middle lobe linear infiltrate o r atelectasis.
[2020-11-30 18:25] VITALS: BP 111/67; PULSE 88
== END 2020-11-30 18:26 | disposition home or self-care (01) ==
LOC: EC 14:56
DX: J45.901 Unspecified asthma with (acute) exacerbation (principal); Z91.018 Allergy to other foods; Z79.52 Long term (current) use of systemic steroids; F17.200 Nicotine dependence, unspecified, uncomplicated
CPT/HCPCS: 94640; 93005; 71046; 99285; J7512

== ENCOUNTER 2020-12-02 15:32 | Emergency (ER) | payer BC, OTHER ==
[2020-12-02] MEDS ORDERED: SODIUM CHLORIDE 0.9% 1,000 ML IV STA (16:24)
[2020-12-02] MEDS ORDERED: IPRATROPIUM 0.5 MG/2.5 ML NEBU INHALATION STA (16:24)
[2020-12-02] MEDS ORDERED: ALBUTEROL NEBULIZED 2.5 MG/3 ML INHALATION STA (16:24)
[2020-12-02] MEDS ORDERED: ONDANSETRON 4 MG/2 ML VIAL IVP STA (16:25)
[2020-12-02 16:50] LABS: Appearance,Urine Cloudy (Clear); Bilirubin,Urine Negative (Negative); Blood,Urine Negative (Negative); Color,Urine Yellow; Glucose,Urine (UA) Negative (Negative); Ketones,Urine Trace (Negative); Leukocyte Esterase,Urine Negative (Negative); Mucus,Urine Occasional /hpf; Nitrite,Urine Negative (Negative); PH, Urine 5.5 (5.0-8.0); Protein,Urine Trace (Negative); RBC,Urine 4 /hpf (0-5); Specific Gravity,Urine 1.037 (1.001-1.035); Squamous Epithelial Cell,Urine 3 /hpf (0-4); WBC,Urine 1 /hpf (0-5)
--- NOTE | 2020-12-02 16:59 | ED ---
General Adult HPI - General Chief complaint: Shortness of Breath Stated complaint: vomiting-revisit Time Seen by Provider: 12/02/20 16:13 Source: patient, RN notes reviewed, old records reviewed Mode of arrival: ambulatory Limitations: no limitations - History of Present Illness Initial comments: 45-year-old female with increased cough, congestion, vomiting. Patient has had symptoms for approximately 3 days. She was seen in the emergency department and prescribed antibiotics for pneumonia as well as asthma exacerbation. She has been taking these medications but continues to have persistent cough and now has developed vomiting. No reported fevers. No abdominal pain. - Related Data Home Medications Medication Instructions Recorded Confirmed Ibuprofen [Motrin Ib] 800 mg PO TID PRN 04/24/19 04/24/19 Previous Rx's Medication Instructions Recorded Acetaminophen [Tylenol] 500 mg PO Q4-6H PRN #20 tab 09/09/20 Amoxicillin/Potassium Clav 1 tab PO Q12HR #20 tab 09/09/20 [Augmentin 875-125 Tablet] Ibuprofen [Motrin] 600 mg PO Q8HR PRN #20 tab 09/09/20 Ofloxacin 0.3% Ophth Soln [Ocuflox 10 drops RIGHT EAR DAILY 7 Days 09/09/20 Ophth Soln] #10 ml Amoxicillin/Potassium Clav 1 tab PO Q12HR 10 Days #20 tab 09/17/20 [Augmentin 875-125 Tablet] Ofloxacin 0.3% Otic Soln [Floxin 5 drops BOTH EARS BID #10 ml 09/17/20 0.3% Otic Soln] Azithromycin [Zithromax Z-pack (6 0 mg PO DIRECTED #1 pack 11/30/20 tabs)] predniSONE 50 mg PO DAILY #5 tab 11/30/20 Allergies Allergy/AdvReac Type Severity Reaction Status Date / Time Mushroom Allergy Rash/Hives Verified 12/02/20 15:53 Review of Systems ROS Statement: Those systems with pertinent positive or pertinent negative responses have been documented in the HPI. ROS Other: All systems not noted in ROS Statement are negative. Past Medical History Past Medical History: Asthma History of Any Multi-Drug Resistant Organisms: None Reported Past Surgical History: Cholecystectomy, Ear Surgery, Tonsillectomy Additional Past Surgical History / Comment(s): liver surgery. Past Anesthesia/Blood Transfusion Reactions: No Reported Reaction Past Psychological History: No Psychological Hx Reported Smoking Status: Current every day smoker Past Alcohol Use History: None Reported Past Drug Use History: None Reported - Past Family History Mother Additional Family Medical History / Comment(s): DEGENERATIVE BONE DISEASE General Exam Limitations: no limitations General appearance: alert, in no apparent distress Head exam: Present: atraumatic, normocephalic Eye exam: Present: normal appearance, PERRL ENT exam: Present: mucous membranes dry Neck exam: Present: normal inspection. Absent: tenderness, meningismus Respiratory exam: Present: wheezes, rhonchi. Absent: respiratory distress Cardiovascular Exam: Present: regular rate, normal rhythm GI/Abdominal exam: Present: soft. Absent: distended, tenderness, guarding Extremities exam: Present: normal inspection, normal capillary refill. Absent: pedal edema, calf tenderness Neurological exam: Present: alert, oriented X3, CN II-XII intact. Absent: motor sensory deficit Psychiatric exam: Present: normal affect, normal mood Skin exam: Present: warm, dry, intact. Absent: cyanosis, diaphoretic Course Vital Signs 12/02/20 12/02/20 12/02/20 15:49 17:14 17:25 Temperature 98.5 F Pulse Rate 104 H 100 100 Respiratory 20 Rate Blood Pressure 152/83 O2 Sat by Pulse 95 Oximetry 12/02/20 17:45 Temperature Pulse Rate 94 Respiratory 18 Rate Blood Pressure 153/63 O2 Sat by Pulse 94 L Oximetry EKG Findings - EKG Comments: EKG Findings:: EKG: Normal sinus rhythm, rate of 90, MA interval 146, QRS duration 82, QTC 423, no ST segment elevation. Medical Decision Making - Medical Decision Making 25-year-old female presented with cough dyspnea and vomiting. Currently being treated for asthma exacerbation. Patient is in no acute distress, she does have bronchospastic cough with scattered rhonchi. No active vomiting while in the emergency department. No abdominal pain. She has leukocytosis but is currently on oral steroids. Chest x-ray shows improvement, no worsening. She has no other significant lab abnormalities. She will continue antibiotics and steroids as prescribed. - Lab Data Result diagrams: 12/02/20 16:38 12/02/20 16:38 Lab Results 12/02/20 12/02/20 12/02/20 Range/Units 16:38 16:38 16:38 WBC 17.7 H (3.8-10.6) k/uL RBC 5.09 (3.80-5.40) m/uL Hgb 15.0 (11.4-16.0) gm/dL Hct 43.4 (34.0-46.0) % MCV 85.4 (80.0-100.0) fL MCH 29.5 (25.0-35.0) pg MCHC 34.6 (31.0-37.0) g/dL RDW 13.8 (11.5-15.5) % Plt Count 424 (150-450) k/uL MPV 7.3 Neutrophils % 83 % Lymphocytes % 11 % Monocytes % 3 % Eosinophils % 2 % Basophils % 1 % Neutrophils # 14.7 H (1.3-7.7) k/uL Lymphocytes # 2.0 (1.0-4.8) k/uL Monocytes # 0.5 (0-1.0) k/uL Eosinophils # 0.4 (0-0.7) k/uL Basophils # 0.1 (0-0.2) k/uL PT 10.9 (9.0-12.0) sec INR 1.0 (<1.2) APTT 23.9 (22.0-30.0) sec Sodium 143 (137-145) mmol/L Potassium 4.7 (3.5-5.1) mmol/L Chloride 112 H (98-107) mmol/L Carbon Dioxide 22 (22-30) mmol/L Anion Gap 9 mmol/L BUN 17 (7-17) mg/dL Creatinine 0.85 (0.52-1.04) mg/dL Est GFR (CKD-EPI)AfAm >90 (>60 ml/min/1.73 sqM) Est GFR (CKD-EPI)NonAf >90 (>60 ml/min/1.73 sqM) Glucose 98 (74-99) mg/dL Plasma Lactic Acid Sanchez (0.7-2.0) mmol/L Calcium 9.5 (8.4-10.2) mg/dL Magnesium 2.0 (1.6-2.3) mg/dL Total Bilirubin 0.4 (0.2-1.3) mg/dL AST 31 (14-36) U/L ALT 34 (4-34) U/L Alkaline Phosphatase 72 (38-126) U/L Troponin I (0.000-0.034) ng/mL Total Protein 7.8 (6.3-8.2) g/dL Albumin 4.7 (3.5-5.0) g/dL Urine Color Urine Appearance (Clear) Urine pH (5.0-8.0) Ur Specific [place] (1.001-1.035) Urine Protein (Negative) Urine Glucose (UA) (Negative) Urine Ketones (Negative) Urine Blood (Negative) Urine Nitrite (Negative) Urine Bilirubin (Negative) Urine Urobilinogen (<2.0) mg/dL Ur Leukocyte Esterase (Negative) Urine RBC (0-5) /hpf Urine WBC (0-5) /hpf Ur Squamous Epith Cells (0-4) /hpf Urine Mucus (None) /hpf Urine HCG, Qual (Not Detectd) Coronavirus (PCR) (Not Detectd) 12/02/20 12/02/20 12/02/20 Range/Units 16:38 16:38 16:38 WBC (3.8-10.6) k/uL RBC (3.80-5.40) m/uL Hgb (11.4-16.0) gm/dL Hct (34.0-46.0) % MCV (80.0-100.0) fL MCH (25.0-35.0) pg MCHC (31.0-37.0) g/dL RDW (11.5-15.5) % Plt Count (150-450) k/uL MPV Neutrophils % % Lymphocytes % % Monocytes % % Eosinophils % % Basophils % % Neutrophils # (1.3-7.7) k/uL Lymphocytes # (1.0-4.8) k/uL Monocytes # (0-1.0) k/uL Eosinophils # (0-0.7) k/uL Basophils # (0-0.2) k/uL PT (9.0-12.0) sec INR (<1.2) APTT (22.0-30.0) sec Sodium (137-145) mmol/L Potassium (3.5-5.1) mmol/L Chloride (98-107) mmol/L Carbon Dioxide (22-30) mmol/L Anion Gap mmol/L BUN (7-17) mg/dL Creatinine (0.52-1.04) mg/dL Est GFR (CKD-EPI)AfAm (>60 ml/min/1.73 sqM) Est GFR (CKD-EPI)NonAf (>60 ml/min/1.73 sqM) Glucose (74-99) mg/dL Plasma Lactic Acid Sanchez 1.2 (0.7-2.0) mmol/L Calcium (8.4-10.2) mg/dL Magnesium (1.6-2.3) mg/dL Total Bilirubin (0.2-1.3) mg/dL AST (14-36) U/L ALT (4-34) U/L Alkaline Phosphatase (38-126) U/L Troponin I <0.012 (0.000-0.034) ng/mL Total Protein (6.3-8.2) g/dL Albumin (3.5-5.0) g/dL Urine Color Yellow Urine Appearance Cloudy H (Clear) Urine pH 5.5 (5.0-8.0) Ur Specific [place] 1.037 H (1.001-1.035) Urine Protein Trace H (Negative) Urine Glucose (UA) Negative (Negative) Urine Ketones Trace H (Negative) Urine Blood Negative (Negative) Urine Nitrite Negative (Negative) Urine Bilirubin Negative (Negative) Urine Urobilinogen 2.0 (<2.0) mg/dL Ur Leukocyte Esterase Negative (Negative) Urine RBC 4 (0-5) /hpf Urine WBC 1 (0-5) /hpf Ur Squamous Epith Cells 3 (0-4) /hpf Urine Mucus Occasional H (None) /hpf Urine HCG, Qual (Not Detectd) Coronavirus (PCR) (Not Detectd) 12/02/20 12/02/20 Range/Units 16:38 16:38 WBC (3.8-10.6) k/uL RBC (3.80-5.40) m/uL Hgb (11.4-16.0) gm/dL Hct (34.0-46.0) % MCV (80.0-100.0) fL MCH (25.0-35.0) pg MCHC (31.0-37.0) g/dL RDW (11.5-15.5) % Plt Count (150-450) k/uL MPV Neutrophils % % Lymphocytes % % Monocytes % % Eosinophils % % Basophils % % Neutrophils # (1.3-7.7) k/uL Lymphocytes # (1.0-4.8) k/uL Monocytes # (0-1.0) k/uL Eosinophils # (0-0.7) k/uL Basophils # (0-0.2) k/uL PT (9.0-12.0) sec INR (<1.2) APTT (22.0-30.0) sec Sodium (137-145) mmol/L Potassium (3.5-5.1) mmol/L Chloride (98-107) mmol/L Carbon Dioxide (22-30) mmol/L Anion Gap mmol/L BUN (7-17) mg/dL Creatinine (0.52-1.04) mg/dL Est GFR (CKD-EPI)AfAm (>60 ml/min/1.73 sqM) Est GFR (CKD-EPI)NonAf (>60 ml/min/1.73 sqM) Glucose (74-99) mg/dL Plasma Lactic Acid Sanchez (0.7-2.0) mmol/L Calcium (8.4-10.2) mg/dL Magnesium (1.6-2.3) mg/dL Total Bilirubin (0.2-1.3) mg/dL AST (14-36) U/L ALT (4-34) U/L Alkaline Phosphatase (38-126) U/L Troponin I (0.000-0.034) ng/mL Total Protein (6.3-8.2) g/dL Albumin (3.5-5.0) g/dL Urine Color Urine Appearance (Clear) Urine pH (5.0-8.0) Ur Specific [place] (1.001-1.035) Urine Protein (Negative) Urine Glucose (UA) (Negative) Urine Ketones (Negative) Urine Blood (Negative) Urine Nitrite (Negative) Urine Bilirubin (Negative) Urine Urobilinogen (<2.0) mg/dL Ur Leukocyte Esterase (Negative) Urine RBC (0-5) /hpf Urine WBC (0-5) /hpf Ur Squamous Epith Cells (0-4) /hpf Urine Mucus (None) /hpf Urine HCG, Qual Not Detected (Not Detectd) Coronavirus (PCR) Not Detected (Not Detectd) Disposition Clinical Impression: Asthma exacerbation Disposition: HOME SELF-CARE Condition: Good Instructions (If sedation given, give patient instructions): Asthma (ED) Additional Instructions: Please continue antibiotics and steroids as prescribed. Is patient prescribed a controlled substance at d/c from ED?: No Referrals: Chandra Leo MD [Primary Care Provider] - 1-2 days Time of Disposition: 18:01
[2020-12-02 17:01] LABS: Basophils # (A) 0.1 k/uL (0-0.2); Basophils % (A) 1 %; Eosinophils # (A) 0.4 k/uL (0-0.7); Eosinophils % (A) 2 %; HCT 43.4 % (34.0-46.0); Lymphocytes % (A) 11 %; MCH 29.5 pg (25.0-35.0); MCHC 34.6 g/dL (31.0-37.0); MCV 85.4 fL (80.0-100.0); Mean Platelet Volume 7.3; Monocytes # (A) 0.5 k/uL (0-1.0); Monocytes % (A) 3 %; Neutrophils # (A) 14.7 k/uL (1.3-7.7); Neutrophils % (A) 83 %; Platelet Count 424 k/uL (150-450); RBC 5.09 m/uL (3.80-5.40); RDW 13.8 % (11.5-15.5); WBC 17.7 k/uL (3.8-10.6)
[2020-12-02 17:10] LABS: ALT 34 U/L (4-34); AST 31 U/L (14-36); African American GFR (CKD) >90 (>60 ml/min/1.73 sqM); Albumin 4.7 g/dL (3.5-5.0); Alkaline Phosphatase 72 U/L (38-126); Anion Gap 9 mmol/L; Blood Urea Nitrogen 17 mg/dL (7-17); Calcium 9.5 mg/dL (8.4-10.2); Carbon Dioxide 22 mmol/L (22-30); Chloride 112 mmol/L (98-107); Glucose 98 mg/dL (74-99); Non-African American GFR(CKD) >90 (>60 ml/min/1.73 sqM); Sodium 143 mmol/L (137-145); Total Bilirubin 0.4 mg/dL (0.2-1.3); Total Protein 7.8 g/dL (6.3-8.2)
--- NOTE | 2020-12-02 17:20 | XR ---
EXAMINATION TYPE: XR chest 2V DATE OF EXAM: 12/02/2020 COMPARISON: 11/30/2020 HISTORY: Difficulty breathing TECHNIQUE: FINDINGS: Heart and mediastinum are normal. Lungs are clear. Diaphragm is normal. There is slight tho racic dextroscoliosis. Bony thorax is intact. IMPRESSION: No active cardiopulmonary disease. There is clearing of some minimal density below the ri ght pulmonary hilum compared to old exam.
[2020-12-02 17:21] LABS: Potassium 4.7 mmol/L (3.5-5.1)
[2020-12-02 17:30] LABS: Partial Thromboplastin Time 23.9 sec (22.0-30.0); Prothrombin Time 10.9 sec (9.0-12.0)
[2020-12-02 18:30] VITALS: BP 142/65; PULSE 99; RESP 16; TEMP 97.8
== END 2020-12-02 18:29 | disposition home or self-care (01) ==
LOC: EC 15:32
DX: J45.901 Unspecified asthma with (acute) exacerbation (principal); R11.10 Vomiting, unspecified; F17.200 Nicotine dependence, unspecified, uncomplicated; Z20.822 Contact with and (suspected) exposure to COVID-19; Z79.1 Long term (current) use of non-steroidal anti-inflammatories (NSAID); Z79.52 Long term (current) use of systemic steroids
CPT/HCPCS: 36415; 94640; 93005; 80053; 83605; 83735; 84484; 85025; 85610; 85730; 81001; 81025; 87635; 71046; 99284; 96374; 96361; J2405